=== PATIENT | female | born 1950 | race Caucasian/White ===

== ENCOUNTER → 2017-08-18 | Outpatient (CLI) | payer OTHER, MEDICARE ==
[~2017-08-18] MED LIST: ACET-1256 PO; BCTROWC TOP; CLBCR15 TOP; FAMO20TA11 PO; FRC PO; IBUP-1050 PO; ROBITUSSIN COUGH PO; SPIR25TA PO; SYN50 PO; TRAM-10 PO
--- NOTE | 2017-08-18 15:47 | MAMMOGRAPHY REPORT ---
BILATERAL DIGITAL SCREENING MAMMOGRAM WITH CAD: 08/18/2017 CLINICAL HISTORY: Routine screening. Patient has no complaints. TECHNIQUE: Current study was also evaluated with a Computer Aided Detection (CAD) system. Bilateral CC and MLO views were obtained. COMPARISON: Comparison is made to exams dated: 08/16/2016 mammogram, 08/13/2015 mammogram, 08/12/2014 m ammogram - [facility], 03/12/2010 mammogram, and 03/11/2009 mammogram - [facility]. BREAST COMPOSITION: The tissue of both breasts is almost entirely fatty. FINDINGS: No suspicious masses, calcifications, or areas of architectural distortion are noted in ei ther breast. There has been no significant interval change compared to prior exams. Bilateral benign appearing calcifications are not significantly changed. IMPRESSION: ACR BI-RADS CATEGORY 2: BENIGN There is no mammographic evidence of malignancy. A 1 year screening mammogram is recommended. The pa tient will receive written notification of the results. Approximately 10% of breast cancers are not detected with mammography. A negative mammographic report should not delay biopsy if a clinically suggestive mass is present. Susy Brown M.D. /:08/18/2017 10:23:20 Journeyman Machinist: Jailyn Pacheco, [facility] letter sent: Normal 1/2 BI-RADS Code: ACR BI-RADS Category 2: Benign
== END | disposition home or self-care (01) ==
LOC: C.MAMM 09:07
PROVIDERS: ATTEND Family Medicine
DX: Z12.31 Encounter for screening mammogram for malignant neoplasm of breast (principal)

== ENCOUNTER 2020-09-23 23:14 | Inpatient (IN) ==
[2020-09-24] MEDS ORDERED: SODIUM CHLORIDE 0.9% 500 ML IV ONE (00:14)
--- NOTE | 2020-09-24 00:32 | Emergency Department Note ---
History of Present Illness General Chief complaint: Abdominal Pain Stated complaint: ABDOMINAL CRAMPING Time Seen by Provider: 09/23/20 23:45 Source: patient and family Mode of arrival: EMS Limitations: no limitations History of Present Illness Provider complaint: Abdominal pain Onset (ago): hour(s) Location: abdomen Radiation: non-radiation Severity: moderate Pain Consistency: + intermittent Maximum Pain Intensity: 8 Quality: + sharp Relieved By: + none Exacerbated By: + none Associated symptoms: + denies other symptoms Treatments prior to arrival: none This is a 70-year-old female who presents emergency department complaining of intermittent sharp lower abdominal pain. The son at bedside provides most of the history and also provides extensive history about her past and chronic medical problems. Son states she seemed in her usual state of health earlier today. They did get takeout from a local restaurant which she states is unusual as they do not do that frequently, and shortly after eating she stated she needed to go to the restroom. He states she then called for help when he went back to check on her after he did not hear her come out of the bathroom in a while. He states he went in and found her weak and pale appearing struggling to get up off the commode. He states it appeared she had had diarrhea, no blood or clots were noticed. He states he called his brother to help pick her up and lay her in bed. He states that it appeared as though she may pass out but she did continue to talk to them, and slowly her color improved after lying down. Given that she appeared so weak and pale his brother checked her blood sugar and then they checked her blood pressure with a cuff at home. Her blood pressure was lower than usual and given her parents they called 911. 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 Patient did not have any of her evening medications that she felt nauseated and had so much pain. No treatment of the pain prior to arrival. Patient states she has never had pain similar to this before. Patient denies any radiation of the pain. Denies fevers or chills. No other recent trauma, change in diet, or change in activity. No recent medication changes. No history of IBS or IBD. Pt seen during a time of high acuity and national emergency pandemic while wearing PPE. Home Medications Home Medications Medication Instructions Recorded Confirmed Type [id number] 1 tab PO Q6H PRN tab 09/04/19 09/24/20 History 50 mg-325 mg-40 mg tablet spironolactone 25 mg tablet 25 mg PO DAILY tab 09/04/19 09/24/20 History tramadol 50 mg tablet 50 - 100 mg PO Q6H PRN tab MDD 09/04/19 09/24/20 History 400 MG/DAY levothyroxine [Synthroid] 50 mcg PO QAM 03/17/20 09/24/20 History lidocaine 1 applic TOPICAL DIRECTED PRN 03/17/20 09/24/20 History apixaban 5 mg tablet 5 mg PO BID 04/14/20 09/24/20 History acetaminophen [Tylenol Extra 500 - 1,000 mg PO Q6H PRN 09/24/20 09/24/20 History Strength] cholecalciferol (vitamin D3) 2,000 unit PO DAILY 09/24/20 09/24/20 History clobetasol 1 applic TOPICAL DIRECTED PRN 09/24/20 09/24/20 History famotidine 20 mg PO DAILY PRN 09/24/20 09/24/20 History ibuprofen 200 - 600 mg PO DIRECTED PRN 09/24/20 09/24/20 History lisinopril 10 mg PO DAILY 09/24/20 09/24/20 History mupirocin [Bactroban] 1 applic TOPICAL DIRECTED PRN 09/24/20 09/24/20 History peg 400-propylene glycol [Systane 1 drp OPHTHALMIC (EYE) DIRECTED 09/24/20 09/24/20 History Ultra] PRN triamcinolone acetonide 1 applic TOPICAL DIRECTED PRN 09/24/20 09/24/20 History Allergies Allergy/AdvReac Type Severity Reaction Status Date / Time Iodinated Contrast Media Allergy Severe PASSING OUT Verified 09/24/20 01:19 bacitracin Allergy Intermediate REDNESS, Verified 09/24/20 01:19 RASH, "MAKES IT WORSE" latex Allergy Intermediate SKIN Verified 09/24/20 01:29 IRRITATION, ITCHY mold Allergy Intermediate CONGESTION Verified 09/24/20 01:27 neomycin Allergy Intermediate REDNESS, Verified 09/24/20 01:19 RASH, "MAKES IT WORSE" polymyxin B Allergy Intermediate REDNESS, Verified 09/24/20 01:19 RASH, "MAKES IT WORSE" aspirin Allergy Unknown STAYS AWAY Verified 09/24/20 01:19 FROM SINCE ON BLOOD THINNERS clarithromycin Allergy Unknown Unknown Verified 09/24/20 01:19 codeine Allergy Unknown Unknown Verified 09/24/20 01:19 diphtheria toxoid,fluid Allergy Unknown Unknown Verified 09/24/20 01:19 iron Allergy Unknown PER PT'S Verified 09/24/20 01:29 SON morphine Allergy Unknown Unknown Verified 09/24/20 01:19 prednisone Allergy Unknown Unknown Verified 09/24/20 01:19 SEAFOOD Allergy Severe VOMITING Uncoded 09/24/20 01:19 Past Med/Surg History Medical History Hypertension Hypothyroid Migraine Surgical History History of cataract surgery History of cholecystectomy History of hysterectomy History of tooth extraction S/P knee replacement Family History Son Asthma Diabetes Hypertension Pulmonary embolism Sinusitis Mother Diabetes Pulmonary embolism Father Pulmonary embolism Denies family history of Ovarian cancer Breast cancer Colorectal cancer Uterus cancer Social History Smoking Status: Never smoker Hx Alcohol Use: No Hx Substance Use: No Preferred Language: Welsh Communication Ability: Effective 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 and A total of 10 systems reviewed and were otherwise negative Physical Exam Vital Signs Vital Signs - 24 hr 09/24/20 01:48 09/24/20 04:51 Pulse Rate [Apical] 98 H 101 H Respiratory Rate 18 18 Blood Pressure [Left Arm] 130/88 120/81 Blood Pressure Mean [Left Arm] 102 94 Pulse Oximetry 100 98 Oxygen Delivery Method Room Air Room Air GENERAL: alert, ill appearing, well nourished, mild distress, non-toxic, purple hair EYE EXAM: normal conjunctiva, PERRL and EOM's grossly intact OROPHARYNX: no exudate, no erythema, lips, buccal mucosa, and tongue normal and mucous membranes are moist NECK: supple, no nuchal rigidity, no adenopathy, non-tender LUNGS: Clear to auscultation. Normal chest wall mechanics, no w/r/r HEART: no murmurs, S1 normal and S2 normal ABDOMEN: abdomen soft, tenderness in lower abdomen, normo-active bowel sounds, no masses, no rebound or guarding. BACK: Back is symmetrical on inspection and there is no deformity, no midline tenderness, no CVA tenderness. SKIN: no rashes and no bruising UPPER EXTREMITIES: upper extremities are grossly normal. FROM, nml pulses b/l. LOWER EXTREMITIES: No pitting edema. FROM, nml pulses b/l. NEURO EXAM: Normal sensorium, cranial nerves II-XII grossly intact, normal speech, no gross weakness of arms, no gross weakness of legs. Gross sensation intact. Course Course 0140: Pt just returned from CT and had a large BM on the stretcher. Mostly liquid stool noted, dark red in appearance, bedside guaiac testing heme positive. Pt states pain is improved. 0240: Patient updated on additional CT results. Patient states no further pain at this time. Patient has had 2 subsequent recurrent episodes of bloody diarrhea. 0320: Case discussed with [facility] service. Repeat H&H was drawn and sent and is unchanged, type and screen pending, repeat lactic acid is also pending. Administered Medications Acetaminophen/Butalbital/Caffeine (Butalbital/Acetamin/Caffeine Tab) 1 tab PO Q6H PRN PRN Reason: Headache Stop: 10/24/20 07:37 Last Admin: 09/24/20 12:42 Dose: 1 tab Documented by: [id number] Heparin Sodium (Porcine) (Heparin Sod 5,000 Unit/0.5 Ml Vial) 5,000 units SQ Q12 [facility] Stop: 10/24/20 20:59 Last Admin: 09/24/20 20:03 Dose: 5,000 units Documented by: [id number] Sodium Chloride (Nss 1000ml) 1,000 mls @ 125 mls/hr IV .Q8H [facility]ARY Stop: 10/24/20 01:59 Last Admin: 09/24/20 17:29 Dose: 125 mls/hr Documented by: [id number] Infusion: 09/24/20 17:29 Dose: 125 mls/hr Documented by: [id number] Admin: 09/24/20 11:19 Dose: 125 mls/hr Documented by: [id number] Infusion: 09/24/20 10:34 Dose: 0 mls/hr Documented by: [id number] Admin: 09/24/20 02:20 Dose: 125 mls/hr Documented by: [id number] Pantoprazole Sodium 40 mg/ (Syringe) 10 mls @ 5 mls/min IV BID [facility]ARY Stop: 10/24/20 08:59 Last Admin: 09/24/20 20:00 Dose: 5 mls/min Documented by: [id number] Admin: 09/24/20 09:21 Dose: 5 mls/min Documented by: [id number] Famotidine 20 mg/ Syringe 5 mls @ 2.5 mls/min IV BID CLARY Stop: 10/24/20 08:59 Last Admin: 09/24/20 20:00 Dose: 2.5 mls/min Documented by: [id number] Admin: 09/24/20 09:20 Dose: 2.5 mls/min Documented by: [id number] Piperacillin Sod/Tazobactam (Sod 3.375 gm/ Dextrose) 115 mls @ 28.75 mls/hr IV Q8H [facility]; Protocol Stop: 10/04/20 15:59 Last Admin: 09/24/20 23:49 Dose: 28.8 mls/hr Documented by: [id number] Infusion: 09/24/20 21:37 Dose: 0 mls/hr Documented by: [id number] Admin: 09/24/20 17:30 Dose: 28.8 mls/hr Documented by: [id number] Levothyroxine Sodium (Levothyroxine Sodium 50 Mcg Tablet) 50 mcg PO DAILYBB [facility] Stop: 10/24/20 08:59 Last Admin: 09/24/20 09:20 Dose: 50 mcg Documented by: [id number] Magnesium Oxide (Magnesium Oxide 400 Mg Tab) 400 mg PO BID [facility]ARY Stop: 10/24/20 08:59 Last Admin: 09/24/20 21:11 Dose: 400 mg Documented by: [id number] Admin: 09/24/20 05:38 Dose: 400 mg Documented by: [id number] Discontinued Medications Heparin Sodium/Dextrose (Heparin Iv Low Dose *No* Bolus) 1 ea IV Q15M [facility]; Protocol Stop: 10/24/20 09:43 Last Admin: 09/24/20 16:46 Dose: Not Given Documented by: [id number] Admin: 09/24/20 16:46 Dose: Not Given Documented by: [id number] Admin: 09/24/20 16:46 Dose: Not Given Documented by: [id number] Admin: 09/24/20 16:46 Dose: Not Given Documented by: [id number] Admin: 09/24/20 16:46 Dose: Not Given Documented by: [id number] Admin: 09/24/20 16:45 Dose: Not Given Documented by: [id number] Admin: 09/24/20 16:45 Dose: Not Given Documented by: [id number] Admin: 09/24/20 16:45 Dose: Not Given Documented by: [id number] Admin: 09/24/20 16:44 Dose: Not Given Documented by: [id number] Admin: 09/24/20 16:44 Dose: Not Given Documented by: [id number] Admin: 09/24/20 16:44 Dose: Not Given Documented by: [id number] Admin: 09/24/20 16:44 Dose: Not Given Documented by: [id number] Admin: 09/24/20 16:43 Dose: Not Given Documented by: [id number] Admin: 09/24/20 16:43 Dose: Not Given Documented by: [id number] Admin: 09/24/20 16:43 Dose: Not Given Documented by: [id number] Admin: 09/24/20 16:43 Dose: Not Given Documented by: [id number] Admin: 09/24/20 16:42 Dose: Not Given Documented by: [id number] Admin: 09/24/20 10:37 Dose: Not Given Documented by: [id number] Admin: 09/24/20 10:37 Dose: Not Given Documented by: [id number] Admin: 09/24/20 10:37 Dose: Not Given Documented by: [id number] Admin: 09/24/20 10:36 Dose: Not Given Documented by: [id number] Sodium Chloride (Nss) 500 mls @ 999 mls/hr IV .Q31M ONE Stop: 09/24/20 00:44 Last Infusion: 09/24/20 01:19 Dose: 0 mls/hr Documented by: [id number] Admin: 09/24/20 00:44 Dose: 999 mls/hr Documented by: [id number] Acetaminophen (Ofirmev) 1,000 mg in 100 mls @ 400 mls/hr IV NOW STA Stop: 09/24/20 01:17 Last Infusion: 09/24/20 01:22 Dose: 0 mls/hr Documented by: [id number] Admin: 09/24/20 01:07 Dose: 400 mls/hr Documented by: [id number] Piperacillin Sod/Tazobactam Sod (Zosyn) 4.5 gm in 120 mls @ 240 mls/hr IV NOW ONE Stop: 09/24/20 03:20 Last Infusion: 09/24/20 04:51 Dose: 0 mls/hr Documented by: [id number] Admin: 09/24/20 04:10 Dose: 240 mls/hr Documented by: [id number] Potassium Chloride (K David / Wtr) 10 meq in 100 mls @ 100 mls/hr IV Q1H [facility] Stop: 09/24/20 09:01 Last Infusion: 09/24/20 12:47 Dose: 0 mls/hr Documented by: [id number] Admin: 09/24/20 11:20 Dose: 75 mls/hr Documented by: [id number] Infusion: 09/24/20 10:04 Dose: 0 mls/hr Documented by: [id number] Admin: 09/24/20 08:18 Dose: 75 mls/hr Documented by: [id number] Infusion: 09/24/20 08:16 Dose: 0 mls/hr Documented by: [id number] Admin: 09/24/20 06:53 Dose: 100 mls/hr Documented by: [id number] Infusion: 09/24/20 06:29 Dose: 100 mls/hr Documented by: [id number] Admin: 09/24/20 05:29 Dose: 100 mls/hr Documented by: [id number] Piperacillin Sod/Tazobactam (Sod 3.375 gm/ Dextrose) 115 mls @ 28.75 mls/hr IV Q8H [facility]; Protocol Stop: 09/26/20 09:59 Last Infusion: 09/24/20 14:16 Dose: 0 mls/hr Documented by: [id number] Admin: 09/24/20 09:21 Dose: 28.8 mls/hr Documented by: [id number] Heparin Sodium/Dextrose (Heparin Sodium/Dextrose) 25,000 units in 500 mls @ 0.02 mls/hr IV .Q24H [facility]; Protocol Stop: 10/24/20 09:44 Last Admin: 09/24/20 16:42 Dose: Not Given Documented by: [id number] Magnesium Oxide (Magnesium Oxide 400 Mg Tab) Confirm Administered Dose 400 mg .ROUTE .STK-MED ONE Stop: 09/24/20 05:37 Last Admin: 09/24/20 05:38 Dose: Not Given Documented by: [id number] Miscellaneous Information (Piperacill/Tazobac Consult Active) 1 ea N/A UD PRN PRN Reason: Consult Stop: 10/24/20 02:50 Last Admin: 09/24/20 04:10 Dose: 1 ea Documented by: [id number] Medical Decision Making Differential Diagnosis Differential diagnoses includes but is not limited to gastritis, peptic ulcer disease, GERD, gallbladder disease, pancreatitis, small bowel obstruction, acute coronary syndrome, pericarditis, ischemic bowel, irritable bowel disease, irritable bowel syndrome, appendicitis, diverticulitis, malignancy, hernia, urinary tract infection, torsion, [/ectopic (if female)], perforation, trauma, infectious. Medical Records Attestation: I reviewed the patient's medical records. Home Medications Current Medication List: was personally reviewed by me Laboratory Data Attestation: I reviewed the patient's lab results. Result diagrams: 09/24/20 02:09 09/24/20 00:36 Lab Results 09/24/20 09/24/20 09/24/20 Range/Units 00:36 00:36 00:36 WBC 22.97 H (4.8-10.8) K/uL RBC 4.50 (4.2-5.4) M/uL Hgb 14.9 (12.0-16.0) g/dL Hct 44.3 (37-47) % MCV 98.4 (80-100) fL MCH 33.1 (25-34) pg MCHC 33.6 (32-36) g/dL RDW Std Deviation 49.2 H (36.4-46.3) fL RDW Coeff of Radha 13.7 (11.5-14.5) % Plt Count 233 (130-400) K/uL MPV 10.0 (7.4-10.4) fL Immature Gran % (Auto) 0.3 % Neut % (Auto) 85.8 % Lymph % (Auto) 7.1 % [place] % (Auto) 6.4 % Eos % (Auto) 0.3 % Baso % (Auto) 0.1 % Neut # (Auto) 19.72 H (1.4-6.5) K/uL Lymph # (Auto) 1.62 (1.2-3.4) K/uL [place] # (Auto) 1.47 H (0.11-0.59) K/uL Eos # (Auto) 0.07 (0-0.5) K/uL Baso # (Auto) 0.02 (0-0.2) K/uL Immature Gran # (Auto) 0.07 H (0.00-0.02) K/uL Sodium 135 L (136-145) mmol/L Potassium 3.4 L (3.5-5.1) mmol/L Chloride 103 (98-107) mmol/L Carbon Dioxide 24 (21-32) mmol/L Anion Gap 8.0 (3-11) BUN 17 (7-18) mg/dl Creatinine 1.60 H (0.6-1.2) mg/dl Est Cr Clr Drug Dosing 37.7 ml/min Est GFR ( Amer) 36.9 Est GFR (Non-Af Amer) 31.9 BUN/Creatinine Ratio 10.4 (10-20) Glucose 129 H (70-99) mg/dl Lactate 2.9 H* (0.4-2.0) mmol/L Calcium 10.7 H (8.5-10.1) mg/dl Total Bilirubin 0.4 (0.2-1) mg/dl AST 23 (15-37) U/L ALT 25 (12-78) U/L Alkaline Phosphatase 368 H (45-117) U/L Total Protein 8.2 (6.4-8.2) gm/dl Albumin 4.1 (3.4-5.0) gm/dl Globulin 4.1 H (2.5-4.0) gm/dl Albumin/Globulin Ratio 1.0 (0.9-2) Lipase 203 (73-393) U/L Procalcitonin (0-0.5) ng/ml Stl C. diff Tox B Gene (Neg) Blood Type Antibody Screen 09/24/20 09/24/20 09/24/20 Range/Units 00:37 01:55 02:09 WBC (4.8-10.8) K/uL RBC (4.2-5.4) M/uL Hgb (12.0-16.0) g/dL Hct (37-47) % MCV (80-100) fL MCH (25-34) pg MCHC (32-36) g/dL RDW Std Deviation (36.4-46.3) fL RDW Coeff of Radha (11.5-14.5) % Plt Count (130-400) K/uL MPV (7.4-10.4) fL Immature Gran % (Auto) % Neut % (Auto) % Lymph % (Auto) % [place] % (Auto) % Eos % (Auto) % Baso % (Auto) % Neut # (Auto) (1.4-6.5) K/uL Lymph # (Auto) (1.2-3.4) K/uL [place] # (Auto) (0.11-0.59) K/uL Eos # (Auto) (0-0.5) K/uL Baso # (Auto) (0-0.2) K/uL Immature Gran # (Auto) (0.00-0.02) K/uL Sodium (136-145) mmol/L Potassium (3.5-5.1) mmol/L Chloride (98-107) mmol/L Carbon Dioxide (21-32) mmol/L Anion Gap (3-11) BUN (7-18) mg/dl Creatinine (0.6-1.2) mg/dl Est Cr Clr Drug Dosing ml/min Est GFR ( Amer) Est GFR (Non-Af Amer) BUN/Creatinine Ratio (10-20) Glucose (70-99) mg/dl Lactate (0.4-2.0) mmol/L Calcium (8.5-10.1) mg/dl Total Bilirubin (0.2-1) mg/dl AST (15-37) U/L ALT (12-78) U/L Alkaline Phosphatase (45-117) U/L Total Protein (6.4-8.2) gm/dl Albumin (3.4-5.0) gm/dl Globulin (2.5-4.0) gm/dl Albumin/Globulin Ratio (0.9-2) Lipase (73-393) U/L Procalcitonin 0.08 (0-0.5) ng/ml Stl C. diff Tox B Gene Negative Cdiff Gene (Neg) Blood Type A Positive Antibody Screen NEGATIVE 09/24/20 09/24/20 Range/Units 02:09 03:30 WBC (4.8-10.8) K/uL RBC (4.2-5.4) M/uL Hgb 14.8 (12.0-16.0) g/dL Hct 44.4 (37-47) % MCV (80-100) fL MCH (25-34) pg MCHC (32-36) g/dL RDW Std Deviation (36.4-46.3) fL RDW Coeff of Radha (11.5-14.5) % Plt Count (130-400) K/uL MPV (7.4-10.4) fL Immature Gran % (Auto) % Neut % (Auto) % Lymph % (Auto) % [place] % (Auto) % Eos % (Auto) % Baso % (Auto) % Neut # (Auto) (1.4-6.5) K/uL Lymph # (Auto) (1.2-3.4) K/uL [place] # (Auto) (0.11-0.59) K/uL Eos # (Auto) (0-0.5) K/uL Baso # (Auto) (0-0.2) K/uL Immature Gran # (Auto) (0.00-0.02) K/uL Sodium (136-145) mmol/L Potassium (3.5-5.1) mmol/L Chloride (98-107) mmol/L Carbon Dioxide (21-32) mmol/L Anion Gap (3-11) BUN (7-18) mg/dl Creatinine (0.6-1.2) mg/dl Est Cr Clr Drug Dosing ml/min Est GFR ( Amer) Est GFR (Non-Af Amer) BUN/Creatinine Ratio (10-20) Glucose (70-99) mg/dl Lactate 4.2 H* (0.4-2.0) mmol/L Calcium (8.5-10.1) mg/dl Total Bilirubin (0.2-1) mg/dl AST (15-37) U/L ALT (12-78) U/L Alkaline Phosphatase (45-117) U/L Total Protein (6.4-8.2) gm/dl Albumin (3.4-5.0) gm/dl Globulin (2.5-4.0) gm/dl Albumin/Globulin Ratio (0.9-2) Lipase (73-393) U/L Procalcitonin (0-0.5) ng/ml Stl C. diff Tox B Gene (Neg) Blood Type Antibody Screen Imaging Data Radiologist's Impression: CT abdomen and pelvis without contrast: Images from the previous study of April 09, 2020 are not available for direct at this time. Liver, spleen and pancreas appear normal. Gallbladder is surgically absent. Stomach is mildly distended. There is a moderate gastric sliding hiatal hernia. Small bowel loops appear normal. Large bowel is diffusely distended and filled with fluid. There are dynamic fluid levels. There is a segment of thickened and inflamed colon in the sigmoid colon and there is a small amount of retained fecal material in the rectum. The adrenals kidneys ureters and bladder appear normal. Uterus is not visualized. There are mild atherosclerotic changes in the abdominal aorta. There is no free peritoneal air. Impression: Diffuse colonic distention and fluid with some thickening of the sigmoid colon suggesting diffuse colitis and partial obstruction. Ischemic colitis cannot be excluded although, there is no colonic wall pneumatosis or portal venous gas. Radiologist: Cory José MD ECG Data Attestation: I personally reviewed and interpreted this ECG as follows: Indication: + abdominal pain Rate (beats per minute): 93 Rhythm: + normal sinus ECG Intervals/blocks: + First degree AV block, + Normal QRS and + Normal QT ECG [place]: + Normal ECG ST segments: + Nonspecific ST abnormalities Comparison ECG Date: from (03/17/2020) Change: no significant change Blood Pressure Blood Pressure Findings: Normal blood pressure MDM Narrative This is an ill-appearing 70-year-old brought in by EMS with her son at bedside who provides most of the history. Patient with intermittent abdominal cramping after eating takeout restaurant food earlier in this evening. While story suggestive initially of possible foodborne illness, given patient's past medical history and ongoing problems, labs are drawn and sent and patient sent for CT imaging. Patient with a soft initial blood pressure that did respond to IV flu ids, and given diarrhea and ongoing GI symptoms, likely secondary to volume losses as well as vasovagal influence. Patient was afebrile here. Patient found to have a significant leukocytosis and lactic acid of 2.9. IV Zosyn was added as a precaution and additional blood cultures were added as well as a procalcitonin. Upon returning from CAT scan, patient had a large bloody episode of diarrhea. A repeat H&H and a type and screen were added at that time. CT revealed colitis, this was discussed with patient at bedside. Following her episodes of diarrhea here, patient stated the pain has since resolved. Due to concern for the colitis noted, these 3 episodes of bloody diarrhea here in the setting of patient being anticoagulated, as well as the significant leukocytosis, the case was discussed with the hospitalist for additional evaluation. The repeat lactic acid was pending at the time of this discussion. Patient remained hemodynamically stable while in the emergency room, IV fluids were continued, and patient continued to report feeling improved. In light of improvement, I feel ischemic colitis is less likely. Patient with no other history of inflammatory bowel disease. Patient and son were made aware of all results and were in agreement with plan. Patient had not taken her evening anticoagulation, given her GI bleed, we will hold off on this at this time. An order was placed for continuous cardiac monitoring. The monitor shows a rate of 100_ with _sinus tachycardia rhythm. Impression & Plan Abdominal pain, Acute GI bleeding, Colitis, JULIANNE (acute kidney injury), Leukocytosis, Acidosis, lactic Discharge Plan Visit Data Chief Complaint: Abdominal Pain Stated Complaint: ABDOMINAL CRAMPING ED Provider: Cynthia Finney Discharge Problem: Abdominal pain, Acute GI bleeding, Colitis, JULIANNE (acute kidney injury), Leukocytosis, Acidosis, lactic Patient Disposition: Admitted As Inpatient Discharge Instructions Interventions: ED Discharge Assessment Last Done: 09/24/20 16:00 Discharge Problem: Abdominal pain Qualifiers: Abdominal location: lower abdomen, unspecified Qualified Code(s): R10.30 - Lower abdominal pain, unspecified Leukocytosis Qualifiers: Leukocytosis type: unspecified Qualified Code(s): D72.829 - Elevated white blood cell count, unspecified
[2020-09-24 00:46] LABS: Basophils # (auto) 0.02 K/uL (0-0.2); Basophils % (auto) 0.1 %; Eosinophils # (auto) 0.07 K/uL (0-0.5); Eosinophils % (auto) 0.3 %; Hematocrit (blood only) 44.3 % (37-47); Hemoglobin 14.9 g/dL (12.0-16.0); Immature Granulocytes # (auto) 0.07 K/uL (0.00-0.02); Immature Granulocytes % (auto) 0.3 %; Lymphocytes # (auto) 1.62 K/uL (1.2-3.4); Lymphocytes % (auto) 7.1 %; Mean Corpuscular Hemoglobin 33.1 pg (25-34); Mean Corpuscular Hgb Conc 33.6 g/dL (32-36); Mean Corpuscular Volume 98.4 fL (80-100); Monocytes # (auto) 1.47 K/uL (0.11-0.59); Monocytes % (auto) 6.4 %; Neutrophils # (auto) 19.72 K/uL (1.4-6.5); Neutrophils % (auto) 85.8 %; Platelet Count 233 K/uL (130-400); RDW Coefficient of Variation 13.7 % (11.5-14.5); RDW Standard Deviation 49.2 fL (36.4-46.3); White Blood Count 22.97 K/uL (4.8-10.8)
[2020-09-24 01:03] LABS: Albumin Level 4.1 gm/dl (3.4-5.0); BUN Creatinine Ratio 10.4 (10-20); Calcium 10.7 mg/dl (8.5-10.1); Creatinine Clr Calc Pharmacy 37.7 ml/min; Est GFR (African American) 36.9; Est GFR (Non-African American) 31.9; Potassium 3.4 mmol/L (3.5-5.1)
[2020-09-24] MEDS ORDERED: ACETAMINOPHEN 1,000 MG/100 ML VIAL IV STA (01:03)
[2020-09-24 01:06] LABS: Bilirubin,Total 0.4 mg/dl (0.2-1); Globulin 4.1 gm/dl (2.5-4.0); Total Protein 8.2 gm/dl (6.4-8.2)
[2020-09-24] MEDS: SODIUM CHLORIDE 0.9% 1000ML 1,000 ML IV SCH ×3 (02:20→17:29)
[2020-09-24 02:21] LABS: Hematocrit (blood only) 44.4 % (37-47); Hemoglobin 14.8 g/dL (12.0-16.0)
[2020-09-24] MEDS ORDERED: PIPERACILLIN/TAZOBACTAM 4.5 GM/120 ML BAG IV ONE (02:51)
[2020-09-24] MEDS ORDERED: PIPERACILL/TAZOBAC CONSULT ACTIVE PRN ×3 (02:51→15:45)
--- NOTE | 2020-09-24 04:16 | History & Physical Report ---
Date of Service September 24, 2020 Assessment & Plan (1) Abdominal pain: Sophia is a 70yo F with a hx of DVT and HTN who presents with an episode of GI bleeding and diarrhea. Abdominal pain and diarrhea with blood, diffuse colitis. Patient with abdominal pain and subsequent constipation followed by bloody diarrhea. Abdominal pain gradually improving on exam, minimally worsened with palpation CT abdomen: Diffuse colonic distention with fluid and some thickening of sigmoid colon, diffuse colitis and partial obstruction. No wall pneumatosis or portal venous gas. C. difficile negative Leukocytosis to 22.97, uptrending lactate following fluids Patient with personal and family history of coagulopathy, large blood clots in left leg extending into the abdomen several years ago. Differential suspicious for mesenteric ischemia versus foodborne colitis, however diffuse colitis seems disproportionate to short onset foodborne illness Stool cultures pending, blood cultures pending Patient unable to have contrast due to fear allergy per patient Mesenteric Dopplers pending GI consulted Concern for GI bleed with ischemia on the differential she is both at risk for bleeding, but at risk for complications from thrombosis. Last took her Eliquis last evening. At 9:00 will convert to heparin GTT pending further differential work-up to better manage risks of clot versus bleeding with shorter half-life. n.P.o. with sips and chips Status post 1000 cc x1 and 500cc x1 boluses Continue to trend lactate Arrhythmia Patient with EKG/rhythm strip showing P waves nearly superimposed on T waves and occasional PVCs. Asymptomatic Follow on telemetry Optimize potassium, magnesium History of left venous thrombosis - extensive down entire leg and into abdomen per patient Patient reports that she has been told she will have residual clot in her abdomen and upper thigh for life, and that Eliquis has shrunk but not eliminate the clot Her son also has a coagulopathy, and developed blood clots rapidly after stopping warfarin therapy Apixaban and heparin management as above No acute change in left leg, follow clinically JULIANNE Creatinine 1.6, baseline less than 1 Hold nephrotoxins/lisinopril/spironolactone Fluids as below BMP daily DVT prophylaxis: As above Diet: N.p.o. sips and chips Disposition: Medical/surgical telemetry CODE STATUS: Full code -----ADDENDUM FROM 09/24/2020 17:00----- Patient evaluated multiple times throughout the day with improving physical exam. Noted lessening in her abdominal discomfort (to the point where no discomfort unless coughing or sneezing at rest). Still having some diffuse tenderness to abdominal palpation, worse in the lower quadrants. Mesenteric Doppler with <50% stenosis of the mid superior mesenteric artery and no evidence of stenosis within the celiac axis -- less concern for Mesenteric Ischemia Plan: -Ischemic vs Infectious colitis -Stool studies pending -Will continue with supportive management, clear liquid diet -Empiric abx with Zosyn -Appreciate GI input (2) Acute GI bleeding: (3) Colitis: (4) JULIANNE (acute kidney injury): (5) Leukocytosis: (6) Acidosis, lactic: History of Present Illness Chief Complaint: Diarrhea, Abdominal Pain Primary Care Provider: Jaki Escoto DO Sophia is a 70yo F with a hx of DVT and HTN who presents with an episode of GI bleeding and diarrhea. She denies has not had symptoms like this before. She sometimes struggles with bowel movements Today she had to go to the bathroom and had a sense of unusual urgency. She had had [employer] chicken tenders about 45 minutes prior to onset of symptoms. She had' an insane urgency' but couldn't pass a bowel movement. She has chronic post herpatic neuralgia and she tends ot hold her breath with BMs which can cause her to pass out. She had a small liquid/clear bowel movement. She started to feel faint which made her nervous and she called for one of her sons to help her. They helped her to the bed. She was 'clammy, covered in sweat, and weak' per her sons report. She was responding and coherant, but seemed very weak. Her son checked her blood pressure which was 117/80 which on recheck it a low fo 101/60s. His brother is a diabetic so they checked her blood sugar which was 141. Her temperature while cold and clammy was 67 by forehead thermometer which made her son very nervous. She had a very large bowel movement after getting pain medicine which made her feel much better, but which had some bright red blood. Denies dark red blood. She is on blood thinners because of a blood clot She was very ill last winter with viral illnesses and had antibiotics after which caused her to develop redness and swelling in her legs which also developed blood clots requiring her to have blood thinners. 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 She is not sure how much she worries phsycologically but she gets very nervous around having bowel movements since. She reports she has lichen sclerosis on clobetasol and reports she is immune compromised because of this which makes her nervous to come out in public. Takes tylenol, does not use ibuprofen/alieve. Uses fioricet for migranes, using every day for 1 day. She gets a sour stomach from the medicine intermittently off and on for a few days, Last colonoscopy was several years ago, was com pletely normal. Had an endoscopy which showed 'some red spots' but which did not show ulcer. Takes famotidine for 'bad spells' on average twice per week. Allergies: Reports cannot take iron due to lower blood pressure, allergic to contrast, and allergic to shellfish. she reports she CAN have PCN now. Medhx: Reviewed Shx: reviewed Medications: reviewed Social: Lives with her two sons. Independently ambulatory. No sick contacts, hasn't been out of the house at all and quarantining carefully. No tobacco, no alcohol, no recreational drug use. Code Status: Full Code Allergies Allergy/AdvReac Type Severity Reaction Status Date / Time Iodinated Contrast Media Allergy Severe PASSING OUT Verified 09/24/20 01:19 bacitracin Allergy Intermediate REDNESS, Verified 09/24/20 01:19 RASH, "MAKES IT WORSE" latex Allergy Intermediate SKIN Verified 09/24/20 01:29 IRRITATION, ITCHY mold Allergy Intermediate CONGESTION Verified 09/24/20 01:27 neomycin Allergy Intermediate REDNESS, Verified 09/24/20 01:19 RASH, "MAKES IT WORSE" polymyxin B Allergy Intermediate REDNESS, Verified 09/24/20 01:19 RASH, "MAKES IT WORSE" aspirin Allergy Unknown STAYS AWAY Verified 09/24/20 01:19 FROM SINCE ON BLOOD THINNERS clarithromycin Allergy Unknown Unknown Verified 09/24/20 01:19 codeine Allergy Unknown Unknown Verified 09/24/20 01:19 diphtheria toxoid,fluid Allergy Unknown Unknown Verified 09/24/20 01:19 iron Allergy Unknown PER PT'S Verified 09/24/20 01:29 SON morphine Allergy Unknown Unknown Verified 09/24/20 01:19 prednisone Allergy Unknown Unknown Verified 09/24/20 01:19 Fish Containing Products Allergy Verified 09/25/20 13:16 fish derived Allergy Verified 09/25/20 13:17 fish oil Allergy Verified 09/25/20 13:17 shellfish derived Allergy Verified 09/25/20 15:47 SEAFOOD Allergy Severe VOMITING Uncoded 09/24/20 01:19 Home Medications Home Medications Medication Instructions Recorded Confirmed Type [id number] 1 tab PO Q6H PRN tab 09/04/19 09/24/20 History 50 mg-325 mg-40 mg tablet spironolactone 25 mg tablet 25 mg PO DAILY tab 09/04/19 09/24/20 History tramadol 50 mg tablet 50 - 100 mg PO Q6H PRN tab MDD 09/04/19 09/24/20 History 400 MG/DAY levothyroxine [Synthroid] 50 mcg PO QAM 03/17/20 09/24/20 History lidocaine 1 applic TOPICAL DIRECTED PRN 03/17/20 09/24/20 History apixaban 5 mg tablet 5 mg PO BID 04/14/20 09/24/20 History acetaminophen [Tylenol Extra 500 - 1,000 mg PO Q6H PRN 09/24/20 09/24/20 History Strength] cholecalciferol (vitamin D3) 2,000 unit PO DAILY 09/24/20 09/24/20 History clobetasol 1 applic TOPICAL DIRECTED PRN 09/24/20 09/24/20 History famotidine 20 mg PO DAILY PRN 09/24/20 09/24/20 History ibuprofen 200 - 600 mg PO DIRECTED PRN 09/24/20 09/24/20 History lisinopril 10 mg PO DAILY 09/24/20 09/24/20 History mupirocin [Bactroban] 1 applic TOPICAL DIRECTED PRN 09/24/20 09/24/20 History peg 400-propylene glycol [Systane 1 drp OPHTHALMIC (EYE) DIRECTED 09/24/20 09/24/20 History Ultra] PRN triamcinolone acetonide 1 applic TOPICAL DIRECTED PRN 09/24/20 09/24/20 History Past Med/Surg History Medical History (Updated 09/24/20 @ 04:10 by Cynthia Finney DO) Hypertension Hypothyroid Migraine Surgical History (Updated 09/25/20 @ 15:57 by Deann Jin) History of cataract surgery History of cholecystectomy History of hysterectomy History of oophorectomy, unilateral History of tooth extraction S/P knee replacement Status post tubal ligation Family History Son Asthma Diabetes Hypertension Pulmonary embolism Sinusitis Mother Diabetes Pulmonary embolism Father Pulmonary embolism Denies family history of Ovarian cancer Breast cancer Colorectal cancer Uterus cancer Social History (Updated 09/25/20 @ 15:55 by Deann Jin) Smoking Status: Never smoker Do You Dip or Chew Tobacco: No; Hx Alcohol Use: No Hx Substance Use: No Preferred Language: [place] Communication Ability: Effective Nursing Home Assistant Required: No Beliefs That Will Affect Care: None marital status: Current Living Situation: Family How many Children do You have: 2 Feels Safe at Home: Yes Safety Concerns: Feels Safe At This Time Assistive Devices: Walker Review of Systems Review of Systems: Constitutional: Denies fever, chills, malaise, weight change Eyes: Denies double vision, vision change, eye pain ENT: Denies ear pain, sore throat, sinus pain Cardiovascular: Denies Chest pain, chest pressure, palpitations, extremity swelling Respiratory: Denies shortness of breath, cough, sputum production, difficulty breathing Gastrointestinal: Denies abdominal pain, nausea, vomiting, constipation, diarrh ea Genitourinary: Denies pain with urination, urinary urgency, urinary frequency Musculoskeletal: Denies weakness, muscle aches/pain, joint aches/pain Integumentary:Denies rash, lesions, bruising Neurological: Denies headache, numbness, tingling, focal weakness Physical Exam Physical Exam: General: A&Ox3. NAD. Cooperative. HEENT: Atraumatic, normocephalic. Pupils equal and reactive to light and accommodation. Visual acuity grossly intact. Hearing grossly intact. Pulm: CTAB A&P. -wheezes, -rales, -rhonchi. Symmetrical chest rise. No increase work of breathing. No respiratory distress. Cardiac: RRR, -mrg. Radial pulses intact and symmetrical. Abdominal: Diffusely tender in lower abdomen minimally worsened with palpation. No rebound tenderness. Bowel sounds intact. Extremities: 5/5 mixer and scaler strength, ankle plantarflexion/dorsiflexion bilaterally. Sensation intact extremities bilaterally. Left extremity slightly larger than right extremity, baseline per patient Incision intact in fingers and toes bilaterally. Results & Data Results & Data ([facility]) Vital Signs (Past 12 Hours) Vital Signs Temp Pulse Pulse Resp BP BP Pulse Ox 09/24/20 01:48 98 H 18 130/88 100 09/24/20 00:30 98 H 18 112/62 100 09/24/20 00:00 95 H 18 96/57 L 100 09/23/20 23:25 36.5 C 95 H 18 104/76 100 Supervising Physician Co-Signing Physician Notes Attending addendum: I have physically seen this patient, have supervised the medical residents activities, and agree with the H&P unless as otherwise noted. Assessment and Plan: Diffuse colitis/abdominal pain/bloody diarrhea- Follow stool cultures and blood cultures. Differential includes food poisoning, viral, bacterial and ischemic. Order mesenteric Dopplers to assess for ischemia Anticoagulation management as noted. Left lower extremity DVT history/coagulopathy- Off apixaban, and on conservative heparin IV until because of above determined. Acute kidney injury- Creatinine 1.6 upon admission, with baseline less than 1- Hold lisinopril and spironolactone. IV fluids as noted. Repeat laboratories in a.m. Arrhythmia- Noted on monitor in ED. P waves periodically landing on previous T wave. No tachycardia noted. May be an MAT picture Follow on telemetry. Order echocardiogram Remaining orders and notations as noted Resident Activity Tracking Resident Involvement: Resident Care Provided Care Provided: Adult Hospital Medicine (1) Leukocytosis Leukocytosis type: unspecified Qualified Code(s): D72.829 - Elevated white blood cell count, unspecified (2) Abdominal pain Abdominal location: lower abdomen, unspecified Qualified Code(s): R10.30 - Lower abdominal pain, unspecified
[2020-09-24] MEDS: POTASSIUM CHLORIDE / WTR 10 MEQ/100 ML PLCT IV SCH ×4 (05:29→11:20)
[2020-09-24] MEDS ORDERED: MAGNESIUM OXIDE 400 MG TAB ONE (05:36)
[2020-09-24] MEDS: MAGNESIUM OXIDE 400 MG TAB PO SCH ×2 (05:38→21:11)
[2020-09-24] MEDS ORDERED: Heparin IV Low Dose *NO* Bolus IV SCH (07:15)
[2020-09-24] MEDS ORDERED: HEPARIN SODIUM/DEXTROSE 25,000 UNITS/500 ML BAG IV SCH ×3 (07:38→09:45)
[2020-09-24] MEDS ORDERED: TRIAMCINOLONE ACET 0.1% OINT 15 GM TUBE TOP PRN (07:38)
[2020-09-24] MEDS ORDERED: LIDOCAINE HCL 5% OINT 30 GM TUBE TOP PRN (07:38)
[2020-09-24] MEDS ORDERED: Heparin IV Standard *NO* Bolus IV ONE (07:38)
[2020-09-24] MEDS ORDERED: traMADol HCL 50 MG TABLET PO PRN (07:38)
[2020-09-24] MEDS ORDERED: ACETAMINOPHEN 325 MG TAB PO PRN (07:38)
--- NOTE | 2020-09-24 08:34 | CT Scan Report ---
CT SCAN OF THE ABDOMEN AND PELVIS WITHOUT IV CONTRAST CLINICAL HISTORY: Generalized abdominal pain. Diarrhea. Hematochezia. COMPARISON STUDY: Abdominal CT dated 04/09/2020. TECHNIQUE: CT scan of the abdomen and pelvis is performed from the lung bases to the proximal femora. Images are reviewed in the axial, sagittal, and coronal planes. IV contrast was not administered for this examination. Note that the examination is suboptimal without IV contrast. A dose lowering techn ique was utilized adhering to the principles of ALARA. CT DOSE: 1027.00 mGy.cm FINDINGS: Lung bases: The heart is normal in size and without pericardial effusion. There are coronary artery c alcifications. The lung bases are clear noting bibasilar scarring/atelectasis. There is a moderate hi atal hernia. Liver: The unenhanced liver is normal in size, contour, and attenuation. Focal fatty infiltration is seen adjacent to falciform ligament. There is no intrahepatic biliary ductal dilatation. Gallbladder: Surgically absent noting clips in the gallbladder fossa. Spleen: Normal in size and attenuation. Pancreas: The unenhanced pancreas is atrophic and grossly unremarkable. Adrenal glands: Unremarkable. Kidneys: The unenhanced kidneys demonstrate cortical atrophy and are without hydronephrosis. There ar e no renal calculi identified. There is no evidence of contour deforming renal mass lesion. Abdominal vasculature: The abdominal aorta is normal in course and caliber noting mild to moderate at herosclerotic calcification. Bowel: There is rectosigmoid fecal retention. The colon is mildly distended and filled with liquid st ool. The colonic wall is mildly thickened there is pericolonic inflammation, greatest involving the l eft colon. Findings are consistent with a nonspecific colitis. The small bowel loops are normal in ca liber with no evidence of obstruction. The appendix is well-visualized and normal. Peritoneum: There is no intraperitoneal free air or abdominal ascites. Lymphadenopathy: None. Pelvic viscera: The bladder is decompressed and grossly unremarkable. The uterus is surgically absent . No adnexal lesion is seen. Trace free fluid is seen in the cul-de-sac. Skeletal structures: The skeletal structures are osteopenic. There is a hemitransitional left lumbosa cral segment. Mild lumbosacral spondylosis is observed. No lytic or blastic lesions are seen. IMPRESSION: 1. Findings are consistent with a diarrheal illness/nonspecific colitis. This is likely on an infecti ous or inflammatory basis and clinical correlation will be required. 2. A small volume of free fluid in the pelvis is likely on a reactive basis. 3. Hiatal hernia. 4. Additional findings as above. ACT 112: Negative or not required by law. Electronically signed by: Arsenio Sena M.D. 09/24/2020 8:33 AM
[2020-09-24] MEDS: LEVOTHYROXINE SODIUM 50 MCG TABLET PO SCH (09:20)
[2020-09-24] MEDS: FAMOTIDINE 20 MG in SYRINGE 3 ML IV SCH ×2 (09:20→20:00)
[2020-09-24] MEDS: PANTOprazole 40 MG in SYRINGE 0 ML IV SCH ×2 (09:21→20:00)
[2020-09-24] MEDS ORDERED: PIPERACILLIN/TAZOBACTAM 3.375 GM in DEXTROSE 5% 100 ML IV SCH (10:00)
[2020-09-24] MEDS: Heparin IV Low Dose *NO* Bolus IV SCH ×7 (10:36→16:46)
--- NOTE | 2020-09-24 10:48 | Ultrasound Report ---
US duplex mesenteric CLINICAL HISTORY: diffuse colitis, post prandial, elevated lactate COMPARISON STUDY: CT of the abdomen and pelvis September 24, 2020. TECHNIQUE: Grayscale, color and duplex Doppler sonography of the abdominal aorta and major branch ves sels was performed. FINDINGS: Peak systolic velocity within the abdominal aorta was 96 cm/s. Peak systolic velocity withi n the celiac axis was 108 cm/s. Peak systolic velocity within the superior mesenteric artery with wit hin the mid aspect of this vessel, measuring 212 cm/s. IMPRESSION: 1. Peak systolic velocity of 212 cm/s within the mid superior mesenteric artery which suggests less t yanez 50% stenosis. 2. No evidence for a stenosis within the celiac axis by sonography. ACT 112: Negative or not required by law. Electronically signed by: Abhi Young M.D. 09/24/2020 10:46 AM
[2020-09-24] MEDS: BUTALBITAL/ACETAMIN/CAFFEINE TAB PO PRN (12:42)
--- NOTE | 2020-09-24 13:05 | Gastrointestinal Consultation ---
Date of Consultation September 24, 2020 Assessment & Plan (1) Acute GI bleeding: (2) Colitis: (3) Abdominal pain: Patient with WBC 22.[address] abdomen pelvis demonstrating mildly distended colon and filled with liquid stool. The colonic wall is mildly thickened there is pericolonic inflammation, greatest involving the left colon. Findings are consistent with a nonspecific colitis. She is currently on a clear liquid diet with IV fluids. She had negative C. difficile testing. Mesenteric ultrasound demonstrated less than 50% stenosis in the mid superior mesenteric artery and no evidence for stenosis of the celiac. Patient is on IV heparin. Recommend continuation of current plan of care. Colonoscopy is not indicated at this time. Please refer to supervising physician addendum for further recommendations. Supervising Physician Co-Signing Physician Notes I have seen and examined the patient. I agree with note above by BRIGID Yancey except as noted below. HPI Pt presents with abd pain, bleeding, diarrhea and CT with left colon thickening. WBC and lactate elevated. PE Abdomen pos bs, soft, no guarding nor rebound A/P diarrhea rectal bleeding abnl colon on CT Ischmia vs infectious most likely. Await stool studies. Abx for now. Supportive care. Would avoid instrumenation of colon at present secondary to increased risk of perforation. History of Present Illness Attending Physician: Jaime Gomez MD History of Present Illness The patient is a pleasant 70-year-old female with past medical history to include hypertension, DVT on eliquis, hypothyroidism, migraine who presented to the emergency department with complaints of abdominal pain. While in the e mergency department liquid stool dark red in appearance with positive guaiac heme testing. CT abdomen and pelvis without IV contrast was obtained 09/24/2020 which demonstrated rectosigmoid fecal retention. The colon is mildly distended and filled with liquid stool. The colonic wall is mildly thickened there is pericolonic inflammation, greatest involving the left colon. Findings are consistent with a nonspecific colitis. The small bowel loops are normal in caliber with no evidence of obstruction. A small volume of free fluid in the pelvis is likely on a reactive basis. Hiatal hernia. Patient was subsequently admitted for management of abdominal pain and diarrhea with blood, diffuse colitis. 09/24/2020: Mesenteric ultrasound was obtained which demonstrated Peak systolic velocity of 212 cm/s within the mid superior mesenteric artery which suggests less than 50% stenosis. No evidence for a stenosis within the celiac axis by sonography. On exam/interview today, the patient continues to experience abdominal discomfort and diarrhea stools. Her son, Gurpreet, is at bedside with her answers primarily as historian at patient's request due to her comfort level. Reports that she had dinner from [employer] last night consisting of chicken strips and a salad. Began experiencing abdominal cramping around 6 or 7 PM. Abdominal pain worsened with fecal urgency. Reports that she had a small amount of clear liquid stool. Her son had to look for her in the bathroom and she was unable to get off the toilet. Reports she was diaphoretic and weak and limp like a noodle. Her sons helped her into her bedroom. Checked her blood pressure which was reportedly low. Blood sugar at that time 141. Reported increased bilateral lower abdominal pressure and distention. Upon arrival to the emergency department had a large liquid stool with bright red blood. Patient reports she has had approximately 10-16 bowel movements at the time of my evaluation this morning. She reports she had emesis x1 at home. Denies further nausea or vomiting. She reports now she has persistent bilateral lower abdominal pain that does relieve with bowel movements. Denies any nausea or vomiting. Reports previous other abdominal surgeries including gallbladder and hysterectomy. She also has history of a hiatal hernia. Reports previous colonoscopy and EGD by Dr. Anton. Also reports prior EGD in [facility]. Records not available for review. She is . She lives with her 2 adult sons. Denies use of alcohol, drugs, cigarettes. She is retired. 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 Allergies Allergy/AdvReac Type Severity Reaction Status Date / Time Iodinated Contrast Media Allergy Severe PASSING OUT Verified 09/24/20 01:19 bacitracin Allergy Intermediate REDNESS, Verified 09/24/20 01:19 RASH, "MAKES IT WORSE" latex Allergy Intermediate SKIN Verified 09/24/20 01:29 IRRITATION, ITCHY mold Allergy Intermediate CONGESTION Verified 09/24/20 01:27 neomycin Allergy Intermediate REDNESS, Verified 09/24/20 01:19 RASH, "MAKES IT WORSE" polymyxin B Allergy Intermediate REDNESS, Verified 09/24/20 01:19 RASH, "MAKES IT WORSE" aspirin Allergy Unknown STAYS AWAY Verified 09/24/20 01:19 FROM SINCE ON BLOOD THINNERS clarithromycin Allergy Unknown Unknown Verified 09/24/20 01:19 codeine Allergy Unknown Unknown Verified 09/24/20 01:19 diphtheria toxoid,fluid Allergy Unknown Unknown Verified 09/24/20 01:19 iron Allergy Unknown PER PT'S Verified 09/24/20 01:29 SON morphine Allergy Unknown Unknown Verified 09/24/20 01:19 prednisone Allergy Unknown Unknown Verified 09/24/20 01:19 SEAFOOD Allergy Severe VOMITING Uncoded 09/24/20 01:19 Home Medications Home Medications Medication Instructions Recorded Confirmed Type [id number] 1 tab PO Q6H PRN tab 09/04/19 09/24/20 History 50 mg-325 mg-40 mg tablet spironolactone 25 mg tablet 25 mg PO DAILY tab 09/04/19 09/24/20 History tramadol 50 mg tablet 50 - 100 mg PO Q6H PRN tab MDD 09/04/19 09/24/20 History 400 MG/DAY levothyroxine [Synthroid] 50 mcg PO QAM 03/17/20 09/24/20 History lidocaine 1 applic TOPICAL DIRECTED PRN 03/17/20 09/24/20 History apixaban 5 mg tablet 5 mg PO BID 04/14/20 09/24/20 History acetaminophen [Tylenol Extra 500 - 1,000 mg PO Q6H PRN 09/24/20 09/24/20 History Strength] cholecalciferol (vitamin D3) 2,000 unit PO DAILY 09/24/20 09/24/20 History clobetasol 1 applic TOPICAL DIRECTED PRN 09/24/20 09/24/20 History famotidine 20 mg PO DAILY PRN 09/24/20 09/24/20 History ibuprofen 200 - 600 mg PO DIRECTED PRN 09/24/20 09/24/20 History lisinopril 10 mg PO DAILY 09/24/20 09/24/20 History mupirocin [Bactroban] 1 applic TOPICAL DIRECTED PRN 09/24/20 09/24/20 History peg 400-propylene glycol [Systane 1 drp OPHTHALMIC (EYE) DIRECTED 09/24/20 09/24/20 History Ultra] PRN triamcinolone acetonide 1 applic TOPICAL DIRECTED PRN 11/12/20 11/12/20 History Patient History Medical History Hypertension Hypothyroid Migraine Surgical History History of cataract surgery History of cholecystectomy History of hysterectomy History of tooth extraction S/P knee replacement Family History Son Asthma Diabetes Hypertension Pulmonary embolism Sinusitis Mother Diabetes Pulmonary embolism Father Pulmonary embolism Denies family history of Ovarian cancer Breast cancer Colorectal cancer Uterus cancer Social History Smoking Status: Never smoker Hx Alcohol Use: No Hx Substance Use: No Preferred Language: Czech Communication Ability: Effective K 12 Principal Required: No Beliefs That Will Affect Care: None Current Living Situation: Family Feels Safe at Home: Yes Safety Concerns: Feels Safe At This Time Review of Systems Review of Systems: All systems reviewed & are unremarkable except as noted in Subjective Physical Exam Constitutional: WD/WN, vitals as above + obese Eyes: no eyelid abnormality and no conjunctival abnormality ENMT: Ears: no external ear abnormality Nose: no external nose abnormality Neck: normal visual inspection and trachea midline Respiratory: normal respiratory effort; no respiratory distress and no labored breathing Cardiovascular: Rate/Rhythm: regular rhythm and + tachycardic Heart Sounds: no murmur Gastrointestinal (Abdomen): Inspection/Auscultation: + abdomen distended and normal bowel sounds Percussion/Palpation: + abdomen tender (diffusely tender RUQ, LUQ, LLQ), + guarding, abdomen soft and + tympanic to percussion; abdomen not rigid Musculoskeletal: Extremities: extremities normal to inspection Neurologic: PERRL, EOMI, accommodation nl, no face palsy, no dysarthria Psychiatric: A+Ox3, euthymic affect Results & Data ([facility]) Vital Signs (Past 12 Hours) Vital Signs Pulse Pulse Resp BP Pulse Ox 09/24/20 12:00 105 H 18 124/68 100 09/24/20 10:00 110 H 20 126/85 100 09/24/20 08:33 110 H 20 116/86 100 09/24/20 08:15 103 H 103 H 20 127/81 99 09/24/20 08:00 103 H 20 127/81 100 09/24/20 07:53 105 H 20 116/86 100 09/24/20 07:50 104 H 20 127/81 100 09/24/20 06:00 96 H 18 120/92 100 09/24/20 04:51 101 H 18 120/81 98 09/24/20 01:48 98 H 18 130/88 100 Laboratory Results - last 24 hr 09/24/20 09/24/20 09/24/20 00:36 00:36 00:36 WBC 22.97 H RBC 4.50 Hgb 14.9 Hct 44.3 MCV 98.4 MCH 33.1 MCHC 33.6 RDW Std Deviation 49.2 H RDW Coeff of Radha 13.7 Plt Count 233 MPV 10.0 Immature Gran % (Auto) 0.3 Neut % (Auto) 85.8 Lymph % (Auto) 7.1 [place] % (Auto) 6.4 Eos % (Auto) 0.3 Baso % (Auto) 0.1 Neut # (Auto) 19.72 H Lymph # (Auto) 1.62 [place] # (Auto) 1.47 H Eos # (Auto) 0.07 Baso # (Auto) 0.02 Immature Gran # (Auto) 0.07 H Sodium 135 L Potassium 3.4 L Chloride 103 Carbon Dioxide 24 Anion Gap 8.0 BUN 17 Creatinine 1.60 H Est Cr Clr Drug Dosing 37.7 Est GFR ( Amer) 36.9 Est GFR (Non-Af Amer) 31.9 BUN/Creatinine Ratio 10.4 Glucose 129 H Lactate 2.9 H* Calcium 10.7 H Total Bilirubin 0.4 AST 23 ALT 25 Alkaline Phosphatase 368 H Total Protein 8.2 Albumin 4.1 Globulin 4.1 H Albumin/Globulin Ratio 1.0 Lipase 203 Procalcitonin Stl C. diff Tox B Gene Blood Type Antibody Screen 09/24/20 09/24/20 09/24/20 00:37 01:55 02:09 WBC RBC Hgb Hct MCV MCH MCHC RDW Std Deviation RDW Coeff of Radha Plt Count MPV Immature Gran % (Auto) Neut % (Auto) Lymph % (Auto) [place] % (Auto) Eos % (Auto) Baso % (Auto) Neut # (Auto) Lymph # (Auto) [place] # (Auto) Eos # (Auto) Baso # (Auto) Immature Gran # (Auto) Sodium Potassium Chloride Carbon Dioxide Anion Gap BUN Creatinine Est Cr Clr Drug Dosing Est GFR ( Amer) Est GFR (Non-Af Amer) BUN/Creatinine Ratio Glucose Lactate Calcium Total Bilirubin AST ALT Alkaline Phosphatase Total Protein Albumin Globulin Albumin/Globulin Ratio Lipase Procalcitonin 0.08 Stl C. diff Tox B Gene Negative Cdiff Gene Blood Type A Positive Antibody Screen NEGATIVE 09/24/20 09/24/20 09/24/20 02:09 03:30 13:14 WBC RBC Hgb 14.8 Hct 44.4 MCV MCH MCHC RDW Std Deviation RDW Coeff of Radha Plt Count MPV Immature Gran % (Auto) Neut % (Auto) Lymph % (Auto) [place] % (Auto) Eos % (Auto) Baso % (Auto) Neut # (Auto) Lymph # (Auto) [place] # (Auto) Eos # (Auto) Baso # (Auto) Immature Gran # (Auto) Sodium Potassium Chloride Carbon Dioxide Anion Gap BUN Creatinine Est Cr Clr Drug Dosing Est GFR ( Amer) Est GFR (Non-Af Amer) BUN/Creatinine Ratio Glucose Lactate 4.2 H* Pending Calcium Total Bilirubin AST ALT Alkaline Phosphatase Total Protein Albumin Globulin Albumin/Globulin Ratio Lipase Procalcitonin Stl C. diff Tox B Gene Blood Type Antibody Screen (1) Abdominal pain Abdominal location: lower abdomen, unspecified Qualified Code(s): R10.30 - Lower abdominal pain, unspecified
--- NOTE | 2020-09-24 13:10 | Electrocardiogram Report ---
Test Reason : Blood Pressure : / mmHG Vent. Rate : 093 BPM Atrial Rate : 093 BPM P-R Int : 210 ms QRS Dur : 076 ms QT Int : 366 ms P-R-T Axes : 046 -28 040 degrees QTc Int : 455 ms Sinus rhythm with 1st degree A-V block Minimal voltage criteria for LVH, may be normal variant Cannot rule out Anterior infarct , age undetermined Abnormal ECG When compared with ECG of 17-MAR-2020 16:20, Premature ventricular complexes are no longer Present Confirmed by Madi Lawrence ([id number]) on 09/24/2020 1:09:35 PM Referred By: REFERRED SELF Confirmed By:Madi Lawrence
[2020-09-24] MEDS: PIPERACILLIN/TAZOBACTAM 3.375 GM in DEXTROSE 5% 100 ML IV SCH ×2 (17:30→23:49)
--- NOTE | 2020-09-24 19:55 | Communication Note ---
Date of Service: September 24, 2020 pt seen by myself, paris delgadillo ms2 in f/u from dr sandra's early am admission. doing much better as the day progresses. d/w dr swetha sterling as well. suspect infectious enteritis - food borne pathogen most likely. improving. continue current care. blood seems more from anticoagulation/?fissure or hemorrhoid the way she has described (and dr lomeli examined) bloody stools - more stools with blood streaks and flecks than actual bloody diarrhea.
[2020-09-24] MEDS: HEPARIN SOD 5,000 UNIT/0.5 ML VIAL SQ SCH (20:03)
--- NOTE | 2020-09-24 22:03 | Billing Data ---
Date of Service September 24, 2020 Coding Level of Care Code 98235 Initial Inpt Care Lvl 3
[2020-09-25] MEDS: SODIUM CHLORIDE 0.9% 1000ML 1,000 ML IV SCH ×3 (01:07→17:14)
[2020-09-25] MEDS: LEVOTHYROXINE SODIUM 50 MCG TABLET PO SCH (05:59)
--- NOTE | 2020-09-25 06:10 | Hospitalist Progress Note ---
Date of Service September 25, 2020 Assessment & Plan Admission and Anticipated Discharge Date Admission Date: September 24, 2020 Results & Data Results & Data ([facility]) Vital Signs (Past 12 Hours) Vital Signs Temp Pulse Pulse Resp BP Pulse Ox 09/25/20 04:27 37.0 C 96 H 18 102/64 97 09/24/20 23:28 37.0 C 102 H 18 107/68 96 09/24/20 22:47 108 H 09/24/20 20:00 37.1 C 107 H 18 108/68 100
[2020-09-25] MEDS: BUTALBITAL/ACETAMIN/CAFFEINE TAB PO PRN (07:13)
[2020-09-25 07:46] LABS: Albumin Level 2.7 gm/dl (3.4-5.0); BUN Creatinine Ratio 17.5 (10-20); Calcium 9.3 mg/dl (8.5-10.1); Creatinine Clr Calc Pharmacy 41.6 ml/min; Est GFR (African American) 41.6; Est GFR (Non-African American) 35.9; Potassium 3.8 mmol/L (3.5-5.1)
[2020-09-25 07:54] LABS: Albumin Globulin Ratio 0.7 (0.9-2); Bilirubin,Total 0.9 mg/dl (0.2-1); Globulin 3.7 gm/dl (2.5-4.0); Total Protein 6.4 gm/dl (6.4-8.2)
--- NOTE | 2020-09-25 08:39 | Gastroenterology Progress Note ---
Date of Service September 25, 2020 Assessment & Plan (1) Acute GI bleeding: (2) Colitis: (3) Abdominal pain: Ischemia vs infectious most likely. Await stool studies. Negative c.diff. Antibiotics for now. Supportive care. Colonoscopy is not recommended at this time secondary to increased risk of perforation. Recommend continuation of current plan of care. Please refer to supervising physician addendum for further recommendations. Admission and Anticipated Discharge Date Admission Date: September 24, 2020 Supervising Physician Co-Signing Physician Notes I have seen and examined the patient. I agree with note above by BRIGID Yancey except as noted below. HPI Pt states she feels better but still with loose stools and abd pain. NO blood per patient. PE Abdomen subjective diffuse pain but pos bs, soft, no guarding nor rebound A/P diarrhea rectal bleeding abd pain WBC is better and symptomatically somewhat better. Continue Abx. DC or Mg as it can cause diarrhea and use IV Mg is needed. Subjective Patient reports a migraine this morning. Has history of migraines and was medicated with Fioricet by nursing. Patient reports loose bowel movements without blood. Denies nausea or vomiting. Reports continued lower abdominal pain. Patient repeating self multiple times during assessment. Review of Systems Review of Systems: All systems reviewed & are unremarkable except as noted in Subjective Physical Exam Constitutional: WD/WN, vitals as above + obese Eyes: no eyelid abnormality and no conjunctival abnormality ENMT: Ears: no external ear abnormality Nose: no external nose abnormality Neck: normal visual inspection and trachea midline Respiratory: normal respiratory effort; no respiratory distress and no labored breathing Cardiovascular: Rate/Rhythm: regular rhythm and + tachycardic Heart Sounds: no murmur Gastrointestinal (Abdomen): Inspection/Auscultation: + abdomen distended and normal bowel sounds Percussion/Palpation: + abdomen tender (diffusely tender RLQ, LLQ), abdomen soft and + tympanic to percussion; no guarding and abdomen not rigid Musculoskeletal: Extremities: extremities normal to inspection Neurologic: PERRL, EOMI, accommodation nl, no face palsy, no dysarthria Psychiatric: A+Ox3, euthymic affect Results & Data ([facility]) Vital Signs (Past 12 Hours) Vital Signs Temp Pulse Pulse Resp BP Pulse Ox 09/25/20 07:29 37.2 C 116 H 16 119/74 96 09/25/20 04:27 37.0 C 96 H 18 102/64 97 09/24/20 23:28 37.0 C 102 H 18 107/68 96 09/24/20 22:47 108 H Laboratory Results - last 24 hr 09/24/20 09/24/20 09/24/20 13:14 14:10 14:10 Sodium Potassium Chloride Carbon Dioxide Anion Gap BUN Creatinine Est Cr Clr Drug Dosing Est GFR ( Amer) Est GFR (Non-Af Amer) BUN/Creatinine Ratio Glucose Lactate 3.4 H* Calcium Total Bilirubin AST ALT Alkaline Phosphatase Total Protein Albumin Globulin Albumin/Globulin Ratio Stool Occult Bld Scrn COVID-19 Eval Order Covid19 IDNow [facility] SARS-CoV-2, RNA, NAAT NEGATIVE 09/24/20 09/25/20 09/25/20 15:12 03:35 06:59 Sodium 133 L Potassium 3.8 Chloride 106 Carbon Dioxide 19 L Anion Gap 8.0 BUN 25 H Creatinine 1.45 H Est Cr Clr Drug Dosing 41.6 Est GFR ( Amer) 41.6 Est GFR (Non-Af Amer) 35.9 BUN/Creatinine Ratio 17.5 Glucose 87 Lactate 3.0 H* Calcium 9.3 Total Bilirubin 0.9 D AST 24 ALT 24 Alkaline Phosphatase 191 H Total Protein 6.4 D Albumin 2.7 L Globulin 3.7 Albumin/Globulin Ratio 0.7 L Stool Occult Bld Scrn Positive A COVID-19 Eval Order SARS-CoV-2, RNA, NAAT 09/25/20 07:06 Sodium Potassium Chloride Carbon Dioxide Anion Gap BUN Creatinine Est Cr Clr Drug Dosing Est GFR ( Amer) Est GFR (Non-Af Amer) BUN/Creatinine Ratio Glucose Lactate 2.8 H* Calcium Total Bilirubin AST ALT Alkaline Phosphatase Total Protein Albumin Globulin Albumin/Globulin Ratio Stool Occult Bld Scrn COVID-19 Eval Order SARS-CoV-2, RNA, NAAT (1) Abdominal pain Abdominal location: lower abdomen, unspecified Qualified Code(s): R10.30 - Lower abdominal pain, unspecified
--- NOTE | 2020-09-25 09:40 | Medical Student Progress Note ---
Date of Service September 25, 2020 Assessment & Plan Admission and Anticipated Discharge Date Admission Date: September 24, 2020 1) Abdominal Pain Ischemia vs infectious most likely. Mesenteric U/S showed no abnormalities. Await stool studies. Negative c.diff. - Piperacillin Sod/Tazobactam 115mls @28.75/hr IV Q8H [facility] - Supportive care. - Gi does not recommend colonoscopy, secondary to increased risk of perforation. - Continuing on IVF - NS 1,000 mls @ 125 mls/hr IV Q8H [facility] 2) Migraine Chronic. - Treated with Acetaminophen/Butalbital/Caffeine 3) Hx of DVT Holding home Eliquis. Consider restarting today or tomorrow. - Heparin 5000 units SQ Q12 [facility] 4) Hypothyroidism - Levothyroxine 50mcg PO 5) JULIANNE - Holding Lisinopril and spironolactone until it resolves DVT Prophy: Heparin F/E/N: Clear Liquid Dispo: Medicine Full Code Current Inpatient Medications Acetaminophen (Acetaminophen 325 Mg Tab) 650 mg PO Q4H PRN PRN Reason: Pain or Fever Stop: 10/24/20 07:37 Acetaminophen/Butalbital/Caffeine (Butalbital/Acetamin/Caffeine Tab) 1 tab PO Q6H PRN PRN Reason: Headache Stop: 10/24/20 07:37 Last Admin: 09/25/20 07:13 Dose: 1 tab Documented by: Heparin Sodium (Porcine) (Heparin Sod 5,000 Unit/0.5 Ml Vial) 5,000 units SQ Q12 [facility] Stop: 10/24/20 20:59 Last Admin: 09/24/20 20:03 Dose: 5,000 units Documented by: Sodium Chloride (Nss 1000ml) 1,000 mls @ 125 mls/hr IV .Q8H [facility] Stop: 10/24/20 01:59 Last Admin: 09/25/20 01:07 Dose: 125 mls/hr Documented by: Pantoprazole Sodium 40 mg/ (Syringe) 10 mls @ 5 mls/min IV BID [facility] Stop: 10/24/20 08:59 Last Admin: 09/24/20 20:00 Dose: 5 mls/min Documented by: Famotidine 20 mg/ Syringe 5 mls @ 2.5 mls/min IV BID [facility] Stop: 10/24/20 08:59 Last Admin: 09/24/20 20:00 Dose: 2.5 mls/min Documented by: Piperacillin Sod/Tazobactam (Sod 3.375 gm/ Dextrose) 115 mls @ 28.75 mls/hr IV Q8H [facility]; Protocol Stop: 10/04/20 15:59 Last Infusion: 09/25/20 03:58 Dose: Infused Documented by: Levothyroxine Sodium (Levothyroxine Sodium 50 Mcg Tablet) 50 mcg PO DAILYBB [facility] Stop: 10/24/20 08:59 Last Admin: 09/25/20 05:59 Dose: 50 mcg Documented by: Lidocaine (Lidocaine Hcl 5% Oint 30 Gm Tube) 1 appln TOP DAILY PRN PRN Reason: Neuralgia Pain Stop: 10/24/20 07:37 Magnesium Oxide (Magnesium Oxide 400 Mg Tab) 400 mg PO BID [facility] Stop: 10/24/20 08:59 Last Admin: 09/24/20 21:11 Dose: 400 mg Documented by: Miscellaneous Information (Piperacill/Tazobac Consult Active) 1 ea N/A UD PRN PRN Reason: Consult Stop: 10/24/20 15:44 Tramadol HCl (Tramadol Hcl 50 Mg Tablet) 50 - 100 mg PO Q6H PRN PRN Reason: Pain Stop: 10/24/20 07:37 Triamcinolone Acetonide (Triamcinolone Acet 0.1% Oint 15 Gm Tube) 1 appln TOP DAILY PRN PRN Reason: Skin Irritation Stop: 10/24/20 07:37 Vitamin D (Cholecalciferol 1,000 Units 25 Mcg Tab) 2,000 units PO DAILY [facility] Stop: 10/25/20 08:59 Supervising Attestation I personally examined the patient and verified all owens points of history and exam, discussed case, and agree with decision making with Derrell Blake MS2. feeling much better still had some diarrhea - but overall better and typically has been getting more formed. did have some uncontrollable urgency - right as she was about to eat lunch otherwise does feel better belly feels better too vitals noted nad heent nc at mmm breathing unlabored no accessory muscles good effort skin no rashes no pallor or icterus infectious enteritis - slowly ipmroving, toxic enough to warrant abx and bleeding appears MUCH more c/w bleeding from inflammation and anticoagulation NOT EHEC type picture. continue current care, supportive care, time DVT - 5 months ago. for now holding eliquis since still having some blood w BMs but lessning to where we can probably resume tomorrow. SQ heparin proph dosing (aurora since clot is old enough to be stable) otherwise as above, improving Subjective Pt was in the commode when I walked in this morning. Pt has a migraine this morning and has received foricet. Denies N/V. She reports min of 12 bowel mov ements over night. Stools have been "in bits" but later in the morning they have progressed to more liquid. Only trace dots of blood. Pt reports no abdominal pain, only mild discomfort. She reports some desire for food but had some "burning" following a serving of jello. She is still eating broth and clear liquids. Review of Systems Review of Systems: Const: No fever, no chills, no weight loss. HEENT: Endorses Headache Cardi: No chest pain, no heart palpitations Resp: No SOB Abd: See HPI Results & Data ([facility]) Vital Signs (Past 12 Hours) Vital Signs Temp Pulse Pulse Resp BP Pulse Ox 09/25/20 07:29 37.2 C 116 H 16 119/74 96 09/25/20 04:27 37.0 C 96 H 18 102/64 97 09/24/20 23:28 37.0 C 102 H 18 107/68 96 09/24/20 22:47 108 H
[2020-09-25 09:44] LABS: Basophils # (auto) 0.01 K/uL (0-0.2); Basophils % (auto) 0.1 %; Eosinophils # (auto) 0.02 K/uL (0-0.5); Eosinophils % (auto) 0.1 %; Hematocrit (blood only) 32.3 % (37-47); Hemoglobin 10.9 g/dL (12.0-16.0); Immature Granulocytes # (auto) 0.04 K/uL (0.00-0.02); Immature Granulocytes % (auto) 0.3 %; Lymphocytes # (auto) 1.18 K/uL (1.2-3.4); Lymphocytes % (auto) 7.7 %; Mean Corpuscular Hemoglobin 32.7 pg (25-34); Mean Corpuscular Hgb Conc 33.7 g/dL (32-36); Mean Platelet Volume 10.1 fL (7.4-10.4); Monocytes # (auto) 0.96 K/uL (0.11-0.59); Monocytes % (auto) 6.3 %; Neutrophils # (auto) 13.15 K/uL (1.4-6.5); Neutrophils % (auto) 85.5 %; Platelet Count 199 K/uL (130-400); RDW Coefficient of Variation 14.1 % (11.5-14.5); RDW Standard Deviation 50.6 fL (36.4-46.3); Red Blood Count 3.33 M/uL (4.2-5.4); White Blood Count 15.36 K/uL (4.8-10.8)
[2020-09-25] MEDS: CHOLECALCIFEROL 1,000 UNITS 25 MCG TAB PO SCH (09:47)
[2020-09-25] MEDS: PIPERACILLIN/TAZOBACTAM 3.375 GM in DEXTROSE 5% 100 ML IV SCH (09:47)
[2020-09-25] MEDS: PANTOprazole 40 MG in SYRINGE 0 ML IV SCH ×2 (09:47→21:44)
[2020-09-25] MEDS: HEPARIN SOD 5,000 UNIT/0.5 ML VIAL SQ SCH ×2 (09:48→21:43)
[2020-09-25] MEDS: MAGNESIUM OXIDE 400 MG TAB PO SCH (10:09)
[2020-09-25] MEDS: FAMOTIDINE 20 MG in SYRINGE 3 ML IV SCH ×2 (10:09→22:03)
[2020-09-25] MEDS: AMPICILLIN/SULBACTAM SOD 1,500 MG in 0.9 % SODIUM CHLORIDE 100 ML IV SCH ×2 (17:11→21:44)
--- NOTE | 2020-09-25 17:11 | Billing Data ---
Date of Service September 25, 2020 Coding Level of Care Code 44682 Subseq Hosp Care Lvl 2
[2020-09-26] MEDS: SODIUM CHLORIDE 0.9% 1000ML 1,000 ML IV SCH ×2 (01:57→10:30)
[2020-09-26] MEDS: AMPICILLIN/SULBACTAM SOD 1,500 MG in 0.9 % SODIUM CHLORIDE 100 ML IV SCH ×3 (05:12→15:22)
[2020-09-26] MEDS: LEVOTHYROXINE SODIUM 50 MCG TABLET PO SCH (06:17)
[2020-09-26 07:20] VITALS: BP 114/65; TEMP 98.4; O2SAT 98
[2020-09-26 08:00] LABS: Basophils # (auto) 0.02 K/uL (0-0.2); Basophils % (auto) 0.2 %; Hematocrit (blood only) 28.4 % (37-47); Hemoglobin 9.5 g/dL (12.0-16.0); Immature Granulocytes # (auto) 0.02 K/uL (0.00-0.02); Immature Granulocytes % (auto) 0.2 %; Lymphocytes % (auto) 16.8 %; Mean Corpuscular Hemoglobin 32.6 pg (25-34); Mean Corpuscular Hgb Conc 33.5 g/dL (32-36); Mean Corpuscular Volume 97.6 fL (80-100); Monocytes # (auto) 0.73 K/uL (0.11-0.59); Monocytes % (auto) 7.2 %; Neutrophils # (auto) 7.56 K/uL (1.4-6.5); Neutrophils % (auto) 74.6 %; Platelet Count 176 K/uL (130-400); RDW Coefficient of Variation 14.2 % (11.5-14.5); RDW Standard Deviation 51.2 fL (36.4-46.3); Red Blood Count 2.91 M/uL (4.2-5.4); White Blood Count 10.13 K/uL (4.8-10.8)
[2020-09-26] MEDS: PANTOprazole 40 MG in SYRINGE 0 ML IV SCH (08:26)
[2020-09-26] MEDS: FAMOTIDINE 20 MG in SYRINGE 3 ML IV SCH (08:26)
[2020-09-26] MEDS: CHOLECALCIFEROL 1,000 UNITS 25 MCG TAB PO SCH (08:26)
[2020-09-26] MEDS: HEPARIN SOD 5,000 UNIT/0.5 ML VIAL SQ SCH (08:26)
[2020-09-26 09:25] LABS: Albumin Globulin Ratio 0.7 (0.9-2); Albumin Level 2.3 gm/dl (3.4-5.0); BUN Creatinine Ratio 15.6 (10-20); Bilirubin,Total 0.5 mg/dl (0.2-1); Calcium 8.7 mg/dl (8.5-10.1); Creatinine Clr Calc Pharmacy 75.6 ml/min; Est GFR (African American) 86.7; Est GFR (Non-African American) 74.8; Globulin 3.5 gm/dl (2.5-4.0); Potassium 3.4 mmol/L (3.5-5.1); Total Protein 5.8 gm/dl (6.4-8.2)
--- NOTE | 2020-09-26 15:05 | Discharge Summary ---
Date of Service September 26, 2020 Admission HPI Per Admitting Provider Sophia is a 70yo F with a hx of DVT and HTN who presents with an episode of GI bleeding and diarrhea. She denies has not had symptoms like this before. She sometimes struggles with bowel movements Today she had to go to the bathroom and had a sense of unusual urgency. She had had [employer] chicken tenders about 45 minutes prior to onset of symptoms. She had' an insane urgency' but couldn't pass a bowel movement. She has chronic post herpatic neuralgia and she tends ot hold her breath with BMs which can cause her to pass out. She had a small liquid/clear bowel movement. She started to feel faint which made her nervous and she called for one of her sons to help her. They helped her to the bed. She was 'clammy, covered in sweat, and weak' per her sons report. She was responding and coherant, but seemed very weak. Her son checked her blood pressure which was 117/80 which on recheck it a low fo 101/60s. His brother is a diabetic so they checked her blood sugar which was 141. Her temperature while cold and clammy was 67 by forehead thermometer which made her son very nervous. She had a very large bowel movement after getting pain medicine which made her feel much better, but which had some bright red blood. Denies dark red blood. She is on blood thinners because of a blood clot She was very ill last winter with viral illnesses and had antibiotics after which caused her to develop redness and swelling in her legs which also developed blood clots requiring her to have blood thinners. 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 She is not sure how much she worries phsycologically but she gets very nervous around having bowel movements since. She reports she has lichen sclerosis on clobetasol and reports she is immune compromised because of this which makes her nervous to come out in public. Takes tylenol, does not use ibuprofen/alieve. Uses fioricet for migranes, using every day for 1 day. She gets a sour stomach from the medicine intermittently off and on for a few days, Last colonoscopy was several years ago, was completely normal. Had an endoscopy which showed 'some red spots' but which did not show ulcer. Takes famotidine for 'bad spells' on average twice per week. Allergies: Reports cannot take iron due to lower blood pressure, allergic to contrast, and allergic to shellfish. she reports she CAN have PCN now. Medhx: Reviewed Shx: reviewed Medications: reviewed Social: Lives with her two sons. Independently ambulatory. No sick contacts, hasn't been out of the house at all and quarantining carefully. No tobacco, no alcohol, no recreational drug use. Code Status: Full Code Principal Diagnosis Infectious colitis Discharge Exam Constitutional well developed and well nourished Eyes PERRL, conjunctivae normal, anicteric sclerae Respiratory normal respiratory effort, lungs clear to auscultation Cardiovascular Rate/Rhythm: regular rate and regular rhythm Heart Sounds: no gallop, no murmur and no cardiac rub Vessels: normal peripheral pulses Gastrointestinal (Abdomen) Inspection/Auscultation: abdomen not distended and no abdominal wall ecchymosis Percussion/Palpation: abdomen soft; abdomen nontender, no guarding and no hepatosplenomegaly Neurologic patellar DTR's 2+ bilat, sensation intact and PERRL, EOMI, accommodation nl, no face palsy, no dysarthria Psychiatric A+Ox3, euthymic affect Discharge Data Allergies Allergy/AdvReac Type Severity Reaction Status Date / Time Iodinated Contrast Media Allergy Severe PASSING OUT Verified 09/24/20 01:19 bacitracin Allergy Intermediate REDNESS, Verified 09/24/20 01:19 RASH, "MAKES IT WORSE" latex Allergy Intermediate SKIN Verified 09/24/20 01:29 IRRITATION, ITCHY mold Allergy Intermediate CONGESTION Verified 09/24/20 01:27 neomycin Allergy Intermediate REDNESS, Verified 09/24/20 01:19 RASH, "MAKES IT WORSE" polymyxin B Allergy Intermediate REDNESS, Verified 09/24/20 01:19 RASH, "MAKES IT WORSE" aspirin Allergy Unknown STAYS AWAY Verified 09/24/20 01:19 FROM SINCE ON BLOOD THINNERS clarithromycin Allergy Unknown Unknown Verified 09/24/20 01:19 codeine Allergy Unknown Unknown Verified 09/24/20 01:19 diphtheria toxoid,fluid Allergy Unknown Unknown Verified 09/24/20 01:19 iron Allergy Unknown PER PT'S Verified 09/24/20 01:29 SON morphine Allergy Unknown Unknown Verified 09/24/20 01:19 prednisone Allergy Unknown Unknown Verified 09/24/20 01:19 Fish Containing Products Allergy Verified 09/25/20 13:16 fish derived Allergy Verified 09/25/20 13:17 fish oil Allergy Verified 09/25/20 13:17 shellfish derived Allergy Verified 09/25/20 15:47 grapefruit AdvReac Verified 09/25/20 17:16 orange juice AdvReac Verified 09/25/20 17:15 SEAFOOD Allergy Severe VOMITING Uncoded 09/24/20 01:19 Consultations 09/24/20 03:18 ED Decision to Admit Stat 09/24/20 07:38 Consult Gastroenterology Routine Ordered Studies 09/24/20 01:03 CT abd pelvis wo con Urgent 09/24/20 07:38 US duplex mesenteric Stat Hospital Course (1) Abdominal pain: Sophia is a 70yo F with a hx of DVT and HTN who presents with an episode of GI bleeding and diarrhea. Infectious colitis CT abdomen: Diffuse colonic distention with fluid and some thickening of sigmoid colon, diffuse colitis and partial obstruction. No wall pneumatosis or portal venous gas. C. difficile negative Stool cultures pending, blood cultures pending Patient unable to have contrast due to fear allergy per patient Mesenteric Dopplers suggestive of less than 50% stenosis within the mid superior mesenteric artery continue Augmentin 875mg BID for 6 additional doses Total Time Total Time Spent Total Time Spent (In Minutes): <30 Discharge Plan Discharge Items Patient Disposition: Home - Self-Care Reason For Visit: DIARRHEA, ABDOMINAL PAIN Discharge Diagnosis: infectious colitis (improving - see below) Activity: Resume your previous activity Non-emergency contact: Primary Care Provider Call non-emergency contact if: you have any medication questions, your symptoms worsen and your temperature is above 101 Follow-up/Referrals: Jaki Escoto DO [Primary Care Provider] - Diet: Regular Addtl Attending Provider Instructions: infectious colitis -while initially the way your symptoms started presented a wide array of concerns, fortunately after further review it appeared to fit with an infectious colitis (a nonspecific food poisoning type of thing) -- it is getting better nicely. while most food poisoning will get better without treatment, conventionally when someone is sick enough to be hospitalized, we do use a short course of antibiotics to hasten resolution. at this point it will be quite safe to transition to augmentin (for all purposes basically the oral version of the unasyn you've been on) for 6 more doses (next dose at bedtime tonight) -it's safe to get back on your regular medicines now, to be thorough/complete we will want you to get labwork (BMP) drawn in the office mid/late next week just to ensure your electrolytes look good reflux -here in the hospital we've been using protonix (pantoprazole) twice a day and pepcid (famotidine) twice a day on top of it. since that seems to be helping - continue exactly that regimen (prescriptions sent) for the next week. after that, try to stop taking the pepcid (famotidine) and see how you feel. 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 Pending Studies at Discharge: No Stand-Alone Forms: My [facility] PROnoise, Smoking Cessation Medications and DC Order Prescriptions: New amoxicillin-pot clavulanate [Augmentin] 875-125 mg tablet 1 tab PO BID Qty: 6 RF: 0 pantoprazole [Protonix] 40 mg tablet,delayed release (DR/EC) 40 mg PO BID 14 Days Qty: 28 RF: 0 famotidine [Pepcid] 20 mg tablet 20 mg PO BID Qty: 14 RF: 0 Continued Eliquis 5 mg tablet 5 mg PO BID RF: 0 beqihogsit-bzgvgwcvnxlxq-nqyc 50-325-40 mg tablet 1 tab PO Q6H PRN (Reason: Headache) RF: 0 tramadol 50 mg tablet 50 - 100 mg PO Q6H MDD 400 MG/DAY PRN (Reason: Pain) RF: 0 spironolactone 25 mg tablet 25 mg PO DAILY RF: 0 levothyroxine [Synthroid] 50 mcg tablet 50 mcg PO QAM RF: 0 lidocaine 5 % ointment 1 applic topical DIRECTED PRN (Reason: Neuralgia Pain) RF: 0 acetaminophen [Tylenol Extra Strength] 500 mg Tablet 500 - 1,000 mg PO Q6H PRN (Reason: Pain) RF: 0 famotidine 20 mg Tablet 20 mg PO DAILY PRN (Reason: Indigestion) RF: 0 triamcinolone acetonide 0.1 % ointment 1 applic TOPICAL DIRECTED PRN (Reason: Skin Irritation) RF: 0 lisinopril 10 mg tablet 10 mg PO DAILY RF: 0 ibuprofen 200 mg Tablet 200 - 600 mg PO DIRECTED PRN (Reason: Pain) RF: 0 mupirocin 2 % Ointment 1 applic TOPICAL DIRECTED PRN (Reason: Skin Irritation) RF: 0 clobetasol 0.05 % ointment 1 applic TOPICAL DIRECTED PRN (Reason: Skin Irritation) RF: 0 Systane Ultra 0.4-0.3 % Drops 1 drp OPHTHALMIC (EYE) DIRECTED PRN (Reason: Dry Eyes) RF: 0 cholecalciferol (vitamin D3) 50 mcg (2,000 unit) tablet 2,000 unit PO DAILY RF: 0 Discharge Orders: Discharge Order (Routine); Ordered 09/26/20 Ordered By: Wili Brown Admission Data Admit Date/Time: 09/24/20 04:52 Attending Provider: Dev Mao Admit Provider: Primitivo Domingo Primary Care Provider: Jaki Escoto Other Providers: Jaime Gomez ; Nick Murphy Supervising Physician Co-Signing Physician Notes I personally examined the patient and verified all owens points of history and exam, discussed case, and agree with decision making with Dr Brown eating better belly feels better stools forming feels up to going home vitals noted nad heent nc at mmm breathing unlabored no accessory muscles good e ffort skin no rashes no pallor or icterus abd soft nd nt infectious enteritis - improving - safe/stable for home, finish course of abx w augmentin DVT - 5 months ago. eliquis held a few days due to bleeding - although was on SQ heparin at the time - but safe to resume eliquis at this point otherwise as above, improving and safe for home Resident Activity Tracking Resident Involvement: Resident Care Provided Care Provided: Adult Hospital Medicine
[2020-09-26 15:21] VITALS: PULSE 88
--- NOTE | 2020-09-26 16:50 | Billing Data ---
Date of Service September 26, 2020 Coding Level of Care Code D/C Day Management <30 mins
== END 2020-09-26 15:58 | disposition home or self-care (01) | DRG 392 ==
LOC: ED 23:14 → SUATTDRO 09-24 04:52 → EDINP 09-24 04:52 → 2N 09-24 16:00

== ENCOUNTER 2021-12-02 13:20 | Observation (INO) ==
--- NOTE | 2021-12-02 14:14 | XRay Report ---
XR chest 2V PA/lateral CLINICAL HISTORY: Atypical chest pain. COMPARISON STUDY: No previous studies for comparison. FINDINGS: Lung volumes are normal. Lungs are clear. Right apical densities are unchanged and favor sc arring. There is no pneumothorax or pleural effusion. Cardiac size is normal. Mediastinal contours ar e normal. There is no evidence for pulmonary edema. IMPRESSION: No acute cardiopulmonary findings. No change in appearance of the chest. ACT 112: Negative or not required by law. Electronically signed by: Abhi Young M.D. 12/02/2021 2:13 PM
[2021-12-02 14:22] LABS: Basophils # (auto) 0.02 K/uL (0-0.2); Basophils % (auto) 0.2 %; Eosinophils # (auto) 0.29 K/uL (0-0.5); Eosinophils % (auto) 3.2 %; Hematocrit (blood only) 39.2 % (37-47); Hemoglobin 12.9 g/dL (12.0-16.0); Immature Granulocytes # (auto) 0.02 K/uL (0.00-0.02); Immature Granulocytes % (auto) 0.2 %; Lymphocytes # (auto) 2.48 K/uL (1.2-3.4); Lymphocytes % (auto) 27.3 %; Mean Corpuscular Hemoglobin 33.8 pg (25-34); Mean Corpuscular Hgb Conc 32.9 g/dL (32-36); Mean Corpuscular Volume 102.6 fL (80-100); Mean Platelet Volume 10.2 fL (7.4-10.4); Monocytes # (auto) 0.71 K/uL (0.11-0.59); Monocytes % (auto) 7.8 %; Neutrophils # (auto) 5.55 K/uL (1.4-6.5); Neutrophils % (auto) 61.3 %; Platelet Count 273 K/uL (130-400); RDW Coefficient of Variation 14.8 % (11.5-14.5); RDW Standard Deviation 55.7 fL (36.4-46.3); Red Blood Count 3.82 M/uL (4.2-5.4); White Blood Count 9.07 K/uL (4.8-10.8)
[2021-12-02 14:34] LABS: INR 1.2 (0.9-1.1); Partial Thromboplastin Ratio 1.1; Partial Thromboplastin Time 27.8 Seconds (21.0-31.0); Prothrombin Time 11.6 Seconds (9.0-12.0)
[2021-12-02 14:53] LABS: Troponin I 0.21 ng/ml (0-0.04)
[2021-12-02 14:57] LABS: Albumin Globulin Ratio 1.2 (0.9-2); Albumin Level 4.3 gm/dl (3.4-5.0); BUN Creatinine Ratio 13.2 (10-20); Bilirubin,Total 0.4 mg/dl (0.2-1.0); Calcium 10.6 mg/dl (8.5-10.1); Creatinine Clr Calc Pharmacy 48.4 ml/min; Est GFR (African American) 51.4 ml/min; Est GFR (Non-African American) 44.4 ml/min; Globulin 3.6 gm/dl (2.5-4.0); Potassium 3.8 mmol/L (3.5-5.1); Total Protein 7.9 gm/dl (6.0-8.3)
[2021-12-02] MEDS ORDERED: METOPROLOL TARTRATE 1 MG/ML VIAL IV STA (15:39)
--- NOTE | 2021-12-02 15:50 | Emergency Department Note ---
Impression & Plan SOB (shortness of breath), Elevated troponin, Precordial chest pain, History of deep vein thrombosis ED Provider Note NAME: LAVELL SANCHES AGE: 71 SEX: F : 1950 ARRIVES VIA: Walk-In INFORMANT: [Patient][son] ED PROVIDER(S): [Arsenio Thompson MD] CHIEF COMPLAINT: Referred by HISTORY OF PRESENT ILLNESS: The patient is a 71 healthy female who presents to the ER with 6 weeks of symptoms. She had severe chest, shoulder and jaw pain that lasted an hour about 6 or so weeks ago. Since that timeframe, she has had episodes of pain although not as severe as the first. She has noticed exertional shortness of breath. There has been no cough or congestion. The patient does not have any diagnosed coronary disease. The patient went to her doctor's office today, she was referred to the ED for further work-up. Patient has a history of DVT, she is on Eliquis. She states that most of her symptoms occur at night, she has not really noticed exertional jaw pain al though, she has noticed exertional shortness of breath. REVIEW OF SYSTEMS: See HPI for pertinent positives and negatives. A total of ten systems were reviewed and were otherwise negative. PMHx/PSHx: See Below SOCIAL HISTORY: See Below. PHYSICAL EXAM: GENERAL: Patient is in no acute distress. Anxious. HEENT: No acute trauma, normocephalic atraumatic, mucous membranes moist, no n marcelo congestion, no scleral icterus. NECK: No stridor, no adenopathy, no meningismus, trachea is midline. LUNGS: Clear to auscultation bilaterally, no wheeze, no rhonchi, breath sounds equal. HEART: Tachycardic, slightly irregular, no murmurs. ABDOMEN: Soft, nontender, bowel sounds positive, no hernias, no peritonitis. EXTREMITIES: No cyanosis or edema, full range of motion of all the joints witho ut pain or difficulty, no signs for acute trauma. NEUROLOGIC: Oriented x 3, no acute motor or sensory deficits, no focal weakness. SKIN: No rash, no jaundice, no diaphoresis. DIFFERENTIAL DIAGNOSIS: Cardiac ischemia, aortic dissection, pulmonary embolism, pneumothorax, pneumo kenny, pericarditis, myocarditis, esophageal rupture, GERD, cholecystitis, pancreatitis, musculoskeletal, as well as other pathologies. EMERGENCY DEPARTMENT COURSE/PROCEDURES: ECG: Indication was chest pain. The ECG shows a sinus tachycardia with PACs. The rate is 106. 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 There is some ST depression in the anterior leads and some T wave flattening laterally. The QTc is 451. Compared to an ECG from 09/23/2020, the findings of old inferior infarct are now present, the ST depression in the anterior leads is now present. The T wave flattening laterally is now present. Continuous Cardiac Monitoring: An order was placed for continuous cardiac monitoring. The monitor shows a rate of 68 with sinus rhythm with PACs. MEDICAL DECISION MAKING: There is no leukocytosis or concerning anemia. There is a normal platelet count. INR mildly elevated, likely from her Eliquis use. Magnesium low 1.4. No kidney failure. No concerning liver enzyme elevation. The patient appears to be in a euthyroid state. COVID testing returned negative. Chest x-ray does not show pneumonia or CHF. ECG shows sinus tachycardia with PACs. There are some changes on her EKG as noted above when compared to previous EKGs. No acute ST elevation found. Troponin is mildly elevated. The patient is currently symptom-free but does admit to some shortness of breath with exertion ever since her original episode 6 weeks ago. She has had some intermittent jaw pain as well. I do think the patient requires a hospital stay. Further cardiac/pulmonary work-up is warranted. I did give the patient a dose of IV Lopressor, this seemed to control her heart rate. She was given IV magnesium for the lower magnesium value. I discussed the patient's case with cardiology. Hospitalization is certainly warranted. The cause for the patient's complaint is unclear. Cardiac injury is a concern. With her history of DVT, PE is a possibility however, she is on Eliquis already. She does have a contrast allergy and states she cannot have IV dye. The dye allergy will make her work-up a bit more difficult. I spoke with the patient, case management has been involved. The on-call hospitalist was consulted. Past Med/Surg History Medical History Abdominal pain Acidosis, lactic Acute GI bleeding JULIANNE (acute kidney injury) Colitis DVT (deep venous thrombosis) Hypertension Hypothyroid Leukocytosis Migraine Post herpetic neuralgia Surgical History History of cataract surgery History of cholecystectomy History of hysterectomy History of oophorectomy, unilateral History of tooth extraction S/P knee replacement Status post tubal ligation Family History Son Asthma Diabetes Hypertension Pulmonary embolism Sinusitis Mother Diabetes Pulmonary embolism Father Pulmonary embolism Denies family history of Ovarian cancer Breast cancer Colorectal cancer Uterus cancer Social History Smoking Status: Never smoker Hx Alcohol Use: No Hx Substance Use: No Preferred Language: Bulgarian Communication Ability: Effective Toe Puncher Required: No Beliefs That Will Affect Care: None marital status: Current Living Situation: Family How many Children do You have: 2 Feels Safe at Home: Yes Assistive Devices: None Allergies Allergies Allergy/AdvReac Type Severity Reaction Status Date / Time Iodinated Contrast Media Allergy Severe PASSING OUT Verified 12/02/21 16:41 bacitracin Allergy Intermediate REDNESS, Verified 12/02/21 16:41 RASH, "MAKES IT WORSE" latex Allergy Intermediate SKIN Verified 12/02/21 16:41 IRRITATION, ITCHY mold Allergy Intermediate CONGESTION Verified 12/02/21 16:41 neomycin Allergy Intermediate REDNESS, Verified 12/02/21 16:41 RASH, "MAKES IT WORSE" polymyxin B Allergy Intermediate REDNESS, Verified 12/02/21 16:41 RASH, "MAKES IT WORSE" aspirin Allergy Unknown STAYS AWAY Verified 12/02/21 16:41 FROM SINCE ON BLOOD THINNERS clarithromycin Allergy Unknown Unknown Verified 12/02/21 16:41 codeine Allergy Unknown Unknown Verified 12/02/21 16:41 diphtheria toxoid,fluid Allergy Unknown Unknown Verified 12/02/21 16:41 iron Allergy Unknown PER PT'S Verified 12/02/21 16:42 SON morphine Allergy Unknown Unknown Verified 12/02/21 16:42 prednisone Allergy Unknown Unknown Verified 12/02/21 16:42 Fish Containing Products Allergy Unknown Verified 12/02/21 16:42 fish derived Allergy Unknown Verified 12/02/21 16:42 fish oil Allergy Unknown Verified 12/02/21 16:42 shellfish derived Allergy Unknown Verified 12/02/21 16:41 grapefruit AdvReac Unknown Verified 12/02/21 16:41 orange juice AdvReac Unknown Verified 12/02/21 16:41 SEAFOOD Allergy Severe VOMITING Uncoded 09/24/20 01:19 Home Meds Home Medications Medication Instructions Recorded Confirmed pmiydxnloc-npcvlylfrudhi-luetfzpe 1 tab PO Q6H PRN tab 09/04/19 12/02/21 50 mg-325 mg-40 mg tablet spironolactone 25 mg tablet 25 mg PO DAILY tab 09/04/19 12/02/21 tramadol 50 mg tablet 50 - 100 mg PO Q6H PRN tab MDD 09/04/19 12/02/21 400 MG/DAY levothyroxine 50 mcg tablet 50 mcg PO QAM 03/17/20 12/02/21 (Synthroid) lidocaine 5 % topical ointment 1 applic TOPICAL DIRECTED PRN 03/17/20 12/02/21 apixaban 5 mg tablet (Eliquis) 5 mg PO BID 04/14/20 12/02/21 cholecalciferol (vitamin D3) 50 2,000 unit PO DAILY 09/24/20 12/02/21 mcg (2,000 unit) tablet clobetasol 0.05 % topical ointment 1 applic TOPICAL DIRECTED PRN 09/24/20 12/02/21 mupirocin 2 % topical ointment 1 applic TOPICAL DIRECTED PRN 09/24/20 12/02/21 peg 400-propylene glycol 0.4 %-0.3 2 drp OPHTHALMIC (EYE) DIRECTED 09/24/20 12/02/21 % eye drops (Systane Ultra) PRN triamcinolone acetonide 0.1 % 1 applic TOPICAL DIRECTED PRN 09/24/20 12/02/21 topical ointment Nasal Decongestant Tabs 2 tabs PO BID 12/02/21 12/02/21 Robitussin Cough Gel 1 dose PO DIRECTED 12/02/21 12/02/21 benzonatate 200 mg capsule 200 mg PO TID PRN 12/02/21 12/02/21 calcium carbonate 300 mg (750 mg) 600 mg PO BID PRN 12/02/21 12/02/21 chewable tablet (Tums) diphenhydramine HCl 25 mg capsule 50 mg PO BID 12/02/21 12/02/21 (Benadryl) ibuprofen 125 mg-acetaminophen 250 2 tab PO Q6 PRN 12/02/21 12/02/21 mg tablet (Advil Dual Action) nystatin 100,000 unit/gram topical 1 applic TOPICAL DIRECTED 12/02/21 12/02/21 powder pantoprazole 40 mg tablet,delayed 40 mg PO DAILY 12/02/21 12/02/21 release Previous Rx's Medication Instructions Recorded famotidine 20 mg tablet (Pepcid) 20 mg PO BID #14 tab 09/26/20 Results & Data (ED) Vital Signs Vital Signs - 24 hr 12/02/21 13:36 12/02/21 15:43 12/02/21 15:54 Temperature 36.6 C Temperature Source Temporal Artery Scan Pulse Rate 115 H 68 Pulse Rate [Apical] 102 H Respiratory Rate 18 18 20 Respiratory Effort / Characteristics Non-Labored Spontaneous Non-Labored Respiratory Depth Normal Normal Respiratory Pattern Regular Blood Pressure 144/92 H Blood Pressure [Left Arm] 140/96 Blood Pressure Mean 109 Blood Pressure Mean [Left Arm] 110 Blood Pressure Position Sitting Pulse Oximetry 100 95 99 Oxygen Delivery Method Room Air Room Air Room Air Sepsis Recent Fever Within 48 Hours No Sepsis New/Unexplained Change in Mental Status No Sepsis Action Taken by Nursing No Action Required 12/02/21 16:09 12/02/21 17:48 Temperature Temperature Source Pulse Rate 106 H Pulse Rate [Apical] 77 Respiratory Rate 18 Respiratory Effort / Characteristics Non-Labored Spontaneous Respiratory Depth Normal Respiratory Pattern Blood Pressure 140/96 Blood Pressure [Left Arm] 131/86 Blood Pressure Mean Blood Pressure Mean [Left Arm] 101 Blood Pressure Position Pulse Oximetry 99 Oxygen Delivery Method Room Air Sepsis Recent Fever Within 48 Hours Sepsis New/Unexplained Change in Mental Status Sepsis Action Taken by [facility] Medications Current Medication List: was personally reviewed by me Laboratory Data Attestation: I reviewed the patient's lab results. Result diagrams: 12/02/21 14:06 12/02/21 14:06 Lab Results 12/02/21 12/02/21 12/02/21 Range/Units 14:06 14:06 14:06 WBC 9.07 (4.8-10.8) K/uL RBC 3.82 L (4.2-5.4) M/uL Hgb 12.9 (12.0-16.0) g/dL Hct 39.2 (37-47) % MCV 102.6 H (80-100) fL MCH 33.8 (25-34) pg MCHC 32.9 (32-36) g/dL RDW Std Deviation 55.7 H (36.4-46.3) fL RDW Coeff of Radha 14.8 H (11.5-14.5) % Plt Count 273 (130-400) K/uL MPV 10.2 (7.4-10.4) fL Immature Gran % (Auto) 0.2 % Neut % (Auto) 61.3 % Lymph % (Auto) 27.3 % Ellis % (Auto) 7.8 % Eos % (Auto) 3.2 % Baso % (Auto) 0.2 % Neut # (Auto) 5.55 (1.4-6.5) K/uL Lymph # (Auto) 2.48 (1.2-3.4) K/uL Ellis # (Auto) 0.71 H (0.11-0.59) K/uL Eos # (Auto) 0.29 (0-0.5) K/uL Baso # (Auto) 0.02 (0-0.2) K/uL Immature Gran # (Auto) 0.02 (0.00-0.02) K/uL PT 11.6 (9.0-12.0) Seconds INR 1.2 H (0.9-1.1) APTT 27.8 (21.0-31.0) Seconds PTT Ratio 1.1 Sodium 136 (136-145) mmol/L Potassium 3.8 (3.5-5.1) mmol/L Chloride 102 (98-107) mmol/L Carbon Dioxide 24 (21-32) mmol/L Anion Gap 10 (3-11) BUN 16 (6-23) mg/dl Creatinine 1.21 H (0.6-1.2) mg/dl Est Cr Clr Drug Dosing 48.4 ml/min Est GFR ( Amer) 51.4 ml/min Est GFR (Non-Af Amer) 44.4 ml/min BUN/Creatinine Ratio 13.2 (10-20) Glucose 91 (70-99(Fasting)) mg/dl Calcium 10.6 H (8.5-10.1) mg/dl Total Bilirubin 0.4 (0.2-1.0) mg/dl AST 18 (13-39) U/L ALT 11 (7-52) U/L Alkaline Phosphatase 107 H (34-104) U/L Total Creatine Kinase (26-192) U/L Troponin I 0.21 H* (0-0.04) ng/ml Total Protein 7.9 (6.0-8.3) gm/dl Albumin 4.3 (3.4-5.0) gm/dl Globulin 3.6 (2.5-4.0) gm/dl Albumin/Globulin Ratio 1.2 (0.9-2) TSH (0.300-4.500) uIu/ml SARS-CoV-2, RNA, NAAT (NEGATIVE) 12/02/21 12/02/21 12/02/21 Range/Units 14:06 14:06 16:02 WBC (4.8-10.8) K/uL RBC (4.2-5.4) M/uL Hgb (12.0-16.0) g/dL Hct (37-47) % MCV (80-100) fL MCH (25-34) pg MCHC (32-36) g/dL RDW Std Deviation (36.4-46.3) fL RDW Coeff of Radha (11.5-14.5) % Plt Count (130-400) K/uL MPV (7.4-10.4) fL Immature Gran % (Auto) % Neut % (Auto) % Lymph % (Auto) % Ellis % (Auto) % Eos % (Auto) % Baso % (Auto) % Neut # (Auto) (1.4-6.5) K/uL Lymph # (Auto) (1.2-3.4) K/uL Ellis # (Auto) (0.11-0.59) K/uL Eos # (Auto) (0-0.5) K/uL Baso # (Auto) (0-0.2) K/uL Immature Gran # (Auto) (0.00-0.02) K/uL PT (9.0-12.0) Seconds INR (0.9-1.1) APTT (21.0-31.0) Seconds PTT Ratio Sodium (136-145) mmol/L Potassium (3.5-5.1) mmol/L Chloride (98-107) mmol/L Carbon Dioxide (21-32) mmol/L Anion Gap (3-11) BUN (6-23) mg/dl Creatinine (0.6-1.2) mg/dl Est Cr Clr Drug Dosing ml/min Est GFR ( Amer) ml/min Est GFR (Non-Af Amer) ml/min BUN/Creatinine Ratio (10-20) Glucose (70-99(Fasting)) mg/dl Calcium (8.5-10.1) mg/dl Total Bilirubin (0.2-1.0) mg/dl AST (13-39) U/L ALT (7-52) U/L Alkaline Phosphatase (34-104) U/L Total Creatine Kinase 128 (26-192) U/L Troponin I (0-0.04) ng/ml Total Protein (6.0-8.3) gm/dl Albumin (3.4-5.0) gm/dl Globulin (2.5-4.0) gm/dl Albumin/Globulin Ratio (0.9-2) TSH 2.169 (0.300-4.500) uIu/ml SARS-CoV-2, RNA, NAAT NEGATIVE (NEGATIVE) Administered Medications Clopidogrel Bisulfate (Clopidogrel Bisulfate 75 Mg Tab) 75 mg PO QAM [facility] Stop: 01/01/22 20:25 Last Admin: 12/02/21 21:11 Dose: 75 mg Documented by: [id number] Famotidine (Famotidine 20 Mg Tab) 20 mg PO BID [facility] Stop: 01/01/22 20:59 Last Admin: 12/02/21 20:14 Dose: 20 mg Documented by: [id number] Heparin Sodium/Dextrose (Heparin Sodium/Dextrose) 25,000 units in 500 mls @ 27 mls/hr IV .[id number] [facility]; Protocol Stop: 01/01/22 18:14 Last Admin: 12/02/21 19:39 Dose: 1,350 units/hr, 27 mls/hr Documented by: [id number] Cosigned by: [id number] Sodium Chloride (Nss 1000ml) 1,000 mls @ 100 mls/hr IV .Q10H [facility] Stop: 12/03/21 14:09 Last Admin: 12/02/21 19:39 Dose: 100 mls/hr Documented by: [id number] Discontinued Medications Cetirizine HCl (Cetirizine Hcl 10 Mg Tablet) 10 mg PO NOW ONE Stop: 12/02/21 18:43 Last Admin: 12/02/21 20:15 Dose: 10 mg Documented by: [id number] Diphenhydramine HCl (Diphenhydramine 50 Mg/Ml Vial) 50 mg IV NOW STA Stop: 12/02/21 18:42 Last Admin: 12/02/21 20:16 Dose: 50 mg Documented by: [id number] Heparin Sodium/Dextrose (Heparin Iv Adult Wt-Based Standard *No* Bolus Protocol) 1 ea N/A NOW ; Protocol Stop: 12/02/21 17:59 Last Admin: 12/02/21 19:41 Dose: Not Given Documented by: [id number] Magnesium Sulfate/Dextrose (Magnesium Sulfate / D5w) 1 gm in 100 mls @ 50 mls/hr IV ONE ONE Stop: 12/02/21 18:11 Last Infusion: 12/02/21 19:01 Dose: 0 mls/hr Documented by: [id number] Admin: 12/02/21 16:30 Dose: 50 mls/hr Documented by: [id number] Magnesium Sulfate/Dextrose (Magnesium Sulfate / D5w) 1 gm in 100 mls @ 100 mls/hr IV NOW STA Stop: 12/02/21 18:07 Last Admin: 12/02/21 18:17 Dose: Not Given Documented by: [id number] Ioversol (Optiray 320 125ml) 110 ml IV ONCE ONE Stop: 12/02/21 20:35 Last Admin: 12/02/21 20:35 Dose: 110 ml Documented by: [id number] Methylprednisolone (Methylprednisolone 125 Mg/2 Ml Vial) 125 mg IV NOW ONE Stop: 12/02/21 20:01 Last Admin: 12/02/21 20:15 Dose: 125 mg Documented by: [id number] Metoprolol Tartrate (Metoprolol Tartrate 1 Mg/Ml Vial) 5 mg IV NOW STA Stop: 12/02/21 15:40 Last Admin: 12/02/21 16:09 Dose: 5 mg Documented by: [id number] Imaging Data Radiologist's Impression: Chest X-Ray 12/02/21 13:39 XR chest 2V PA/lateral CLINICAL HISTORY: Atypical chest pain. COMPARISON STUDY: No previous studies for comparison. FINDINGS: Lung volumes are normal. Lungs are clear. Right apical densities are unchanged and favor scarring. There is no pneumothorax or pleural effusion. Cardiac size is normal. Mediastinal contours are normal. There is no evidence for pulmonary edema. IMPRESSION: No acute cardiopulmonary findings. No change in appearance of the chest. ACT 112: Negative or not required by law. Electronically signed by: Abhi Young M.D. 12/02/2021 2:13 PM Discharge Plan Visit Data Chief Complaint: Referred by Doctor Stated Complaint: dr dobson labs for psbl heart attck, dr tucker ED Provider: Arsenio Thompson Discharge Problem: SOB (shortness of breath), Elevated troponin, Precordial chest pain, History of deep vein thrombosis Patient Disposition: Admitted As Inpatient Condition: Good Discharge Instructions Interventions: ED Discharge Assessment Last Done: 12/02/21 20:28
[2021-12-02] MEDS ORDERED: MAGNESIUM SULFATE / D5W 1 GM/100 ML BAG IV ONE (16:12)
[2021-12-02] MEDS ORDERED: MAGNESIUM SULFATE / D5W 1 GM/100 ML BAG IV STA (17:08)
[2021-12-02] MEDS ORDERED: Heparin IV Adult Wt-Based Standard *NO* Bolus Protocol STA (17:58)
[2021-12-02] MEDS ORDERED: HEPARIN SODIUM/DEXTROSE 25,000 UNITS/500 ML BAG IV SCH (18:15)
--- NOTE | 2021-12-02 18:34 | History & Physical Report ---
Date of Service December 02, 2021 Assessment & Plan (1) Atypical chest pain: Plan: 71-year-old white female with an underlying PMHx of HTN and prior DVT on ACT therapy presented with vague complaints that have waxed and waned over the past 6 weeks. Most recent episode was jaw pain that occurred approximately 3 days agosent here by PCP * Patient currently without symptoms * Troponin slightly elevated at 0.21. Uncertain if this is from a recent event that corresponded with the jaw pain that she experienced 3 days ago and it is downtrending? * In addition, patient does have an underlying history of an unprovoked DVT. In addition, her father and her son both have had DVTs/PEs. It is possible that she could have an underlying PE that could cause her vague symptoms and an elevated troponin. She is also tachycardic which could be from an underlying PE. She is not hypoxic or requiring supplemental oxygen. Ideally, would obtain a CTA of the chest but she has her severe reported allergy to contrast dye. I did investigate this deeper and she was seen by Dr. Waite the english composition instructor in April 2021 and deemed safe for isoosmolar contrast. I have a call out to our radiology department to help differentiate which type of contrast dye is utilized. In the interim, she will be placed on a heparin drip. If CTA positive for PE, will need to transition to Coumadin. It is possible that given his underlying family history she have an underlying hypercoagulable d yscrasia such as antiphospholipid syndrome for which DOAC's should not be utilized * If we are able to proceed with CTA, it is recommended per Dr. Waite that she be premedicated with Zyrtec 10 mg daily. Patient already on Pepcid for histamine blockade. Would avoid steroids in the setting of an elevated troponin (as should not be utilized in the setting of acute cardiac injury if that is the underlying cause of her positive troponin) * Will cycle out her troponin * Obtain an echocardiogram to assess LV function * Place patient on heparin drip * Patient claims that she is allergic to aspirin, metoprolol, and statins and refuses to take any of these. Is agreeable to Plavix. * Obtaining lipid panel in the a.m. for risk stratification * I have discussed this case with cardiology who agrees with obtaining the echocardiogram and ruling out for PE. If negative, ideally would pursue cardiac catheterization but again, patient has this reported allergy to contrast dye. May need cardiac evaluation based on those findings * (2) Elevated troponin: Plan: * Again, patient with jaw pain that occurred 3 days ago * Currently without symptoms but a slightly elevated troponin at 0.21 * Uncertain if the elevated troponin is secondary to a recent cardiac event versus underlying pulmonary embolismsee above as outlined * Also, uncertain where the elevated troponin is in regards to the timelinepossible that she had an event several days ago and it is downtrending * Based on results of CTA and echocardiogram, may need further cardiac work-up * Cardiology consultedappreciate recommendations * Again, patient reports an allergy to beta-blockade agents, aspirin, and refuses statin therapy (3) Sinus tachycardia: Plan: * Patient's current heart rate is 77. Presenting heart rate was 112 * Again, as outlined above I believe she needs ruled out for a pulmonary embolism as this may be contributing to some underlying tachycardia * Patient reports an allergy to metoprolol and declines anything to help with her heart rate as d/t severe bradycardia in the past (4) JULIANNE (acute kidney injury): Plan: * Troponin slightly elevated at 1.2 (was 0.7 10/02) * Given likely need for contrast for CTA and risk for further contrast nephropathy, will hydrate with IV fluids and continue to monitor labs (5) Hypertension: Plan: * Continue spironolactone as prior to hospitalization (6) Hypothyroid: Plan: * Continue Synthroid as prior to hospitalization Plan: Plan of care discussed with Dr. Govea and Dr. Zambrano History of Present Illness Chief Complaint: Atypical chest discomfort x 6 weeks Primary Care Provider: Jaki Escoto DO Mrs. Cochran is a 71-year-old white female with an underlying past medical history of hypertension, prior DVT on Eliquis, migraine cephalgia, postherpetic neuralgia, and vascular insufficiency with chronic edema. She presented to the ED at the recommendations of her PCP for work-up regarding atypical chest discomfort that has waxed and waned over the past 6 weeks. Patient is very vague in her symptomatology. Initial episode occurred approximately 6 weeks ago that awoke her from sleep. She reports a "burning sensation" in her arms, legs, chest wall that she described as an "electrical shock". The discomfort radiated into her jaw and she reports that her legs were "paralyzed". Symptoms lasted for approximately 1 hour before self alleviating. She did have associated shortness of breath at the time without nausea or diaphoresis. Since then, she has had 2-3 similar episodes that all occur while at rest. The subsequent episodes have not been as severe and have lasted for approximately 15 minutes. Most recently, she had an episode that was mostly jaw pain in the left side of her jaw that alleviated after taking her tramadol. No known aggravating factors. She does denote progressing shortness of breath over the past several weeks and that she typically was able to walk up and down the steps without difficulty but now seems to be slightly winded. Patient was seen by her PCP today who recommended she be evaluated in the emergency department. There she was found to be in a sinus tachycardia for which IV Lopressor was given. Current heart rate is 77. Otherwise she is hemodynamically stable and not hypoxic or requiring supplemental oxygen. Her troponin is slightly elevated at 0.21. She currently denies any complaints of chest pain, jaw pain, dizziness/lightheadedness, shortness of breath, rickie phoresis, nausea or vomiting. As reported above, her last "episode" was approximately 3 days ago. Her EKG shows no acute ST/T wave changes and her chest x-ray shows no acute cardiopulmonary process. COVID test is negative. She was subsequently hospitalized for further evaluation and care. She does not use tobacco products. Denies a family history of CAD. She does have an underlying history of hypertension but is not diabetic and does not have hyperlipidemia. Patient reports having an exercise stress test in the that was normal but otherwise has never had any other formal cardiac work-up. In further discussion regarding her DVT, it was an isolated event but unprovoked for which she remains on chronic anticoagulation therapy. Her father of a pulmonary embolism and her son also has a history of pulmonary embolism and that he "needs to take Coumadin". Patient reports that she has had a full clotting work-up in the past that was "normal" through [facility]. Allergies Allergy/AdvReac Type Severity Reaction Status Date / Time Iodinated Contrast Media Allergy Severe PASSING OUT Verified 12/02/21 16:41 bacitracin Allergy Intermediate REDNESS, Verified 12/02/21 16:41 RASH, "MAKES IT WORSE" latex Allergy Intermediate SKIN Verified 12/02/21 16:41 IRRITATION, ITCHY mold Allergy Intermediate CONGESTION Verified 12/02/21 16:41 neomycin Allergy Intermediate REDNESS, Verified 12/02/21 16:41 RASH, "MAKES IT WORSE" polymyxin B Allergy Intermediate REDNESS, Verified 12/02/21 16:41 RASH, "MAKES IT WORSE" aspirin Allergy Unknown STAYS AWAY Verified 12/02/21 16:41 FROM SINCE ON BLOOD THINNERS clarithromycin Allergy Unknown Unknown Verified 12/02/21 16:41 codeine Allergy Unknown Unknown Verified 12/02/21 16:41 diphtheria toxoid,fluid Allergy Unknown Unknown Verified 12/02/21 16:41 iron Allergy Unknown PER PT'S Verified 12/02/21 16:42 SON morphine Allergy Unknown Unknown Verified 12/02/21 16:42 prednisone Allergy Unknown Unknown Verified 12/02/21 16:42 Fish Containing Products Allergy Unknown Verified 12/02/21 16:42 fish derived Allergy Unknown Verified 12/02/21 16:42 fish oil Allergy Unknown Verified 12/02/21 16:42 shellfish derived Allergy Unknown Verified 12/02/21 16:41 grapefruit AdvReac Unknown Verified 12/02/21 16:41 orange juice AdvReac Unknown Verified 12/02/21 16:41 SEAFOOD Allergy Severe VOMITING Uncoded 09/24/20 01:19 Home Medications Medication Instructions Recorded Confirmed Type twwudnuqqc-[id number]-[id number] 1 tab PO Q6H PRN tab 09/04/19 12/02/21 History 50 mg-325 mg-40 mg tablet spironolactone 25 mg tablet 25 mg PO DAILY tab 09/04/19 12/02/21 History tramadol 50 mg tablet 50 - 100 mg PO Q6H PRN tab MDD 09/04/19 12/02/21 History 400 MG/DAY levothyroxine 50 mcg tablet 50 mcg PO QAM 03/17/20 12/02/21 History (Synthroid) lidocaine 5 % topical ointment 1 applic TOPICAL DIRECTED PRN 03/17/20 12/02/21 History apixaban 5 mg tablet (Eliquis) 5 mg PO BID 04/14/20 12/02/21 History cholecalciferol (vitamin D3) 50 2,000 unit PO DAILY 09/24/20 12/02/21 History mcg (2,000 unit) tablet clobetasol 0.05 % topical ointment 1 applic TOPICAL DIRECTED PRN 09/24/20 12/02/21 History mupirocin 2 % topical ointment 1 applic TOPICAL DIRECTED PRN 09/24/20 12/02/21 History peg 400-propylene glycol 0.4 %-0.3 2 drp OPHTHALMIC (EYE) DIRECTED 09/24/20 12/02/21 History % eye drops (Systane Ultra) PRN triamcinolone acetonide 0.1 % 1 applic TOPICAL DIRECTED PRN 09/24/20 12/02/21 History topical ointment famotidine 20 mg tablet (Pepcid) 20 mg PO BID #14 tab 09/26/20 12/02/21 Rx Nasal Decongestant Tabs 2 tabs PO BID 12/02/21 12/02/21 History Robitussin Cough Gel 1 dose PO DIRECTED 12/02/21 12/02/21 History benzonatate 200 mg capsule 200 mg PO TID PRN 12/02/21 12/02/21 History calcium carbonate 300 mg (750 mg) 600 mg PO BID PRN 12/02/21 12/02/21 History chewable tablet (Tums) diphenhydramine HCl 25 mg capsule 50 mg PO BID 12/02/21 12/02/21 History (Benadryl) ibuprofen 125 mg-acetaminophen 250 2 tab PO Q6 PRN 12/02/21 12/02/21 History mg tablet (Advil Dual Action) nystatin 100,000 unit/gram topical 1 applic TOPICAL DIRECTED 12/02/21 12/02/21 History powder pantoprazole 40 mg tablet,delayed 40 mg PO DAILY 12/02/21 12/02/21 History release Past Med/Surg History Medical History Abdominal pain Acidosis, lactic Acute GI bleeding JULIANNE (acute kidney injury) Colitis DVT (deep venous thrombosis) Hypertension Hypothyroid Leukocytosis Migraine Post herpetic neuralgia Surgical History History of cataract surgery History of cholecystectomy History of hysterectomy History of oophorectomy, unilateral History of tooth extraction S/P knee replacement Status post tubal ligation Family History Son Asthma Diabetes Hypertension Pulmonary embolism Sinusitis Mother Diabetes Pulmonary embolism Father Pulmonary embolism Denies family history of Ovarian cancer Breast cancer Colorectal cancer Uterus cancer Social History Smoking Status: Never smoker Hx Alcohol Use: No Hx Substance Use: No Preferred Language: Syriac Communication Ability: Effective Real Estate Administrator Required: No Beliefs That Will Affect Care: None marital status: Current Living Situation: Family How many Children do You have: 2 Other Information That Helps Us Care for You: No Feels Safe at Home: Yes Assistive Devices: Cane, Denture - Upper, Denture - Lower and Glasses Review of Systems Review of Systems: All systems reviewed and are unremarkable except as noted in HPI and below Denies fevers, chills, headache, nasal congestion, sore throat, cough, shortness of breath, palpitations, orthopnea, PND, abdominal pain, nausea, vomiting, diarrhea, constipation, dysuria, hematuria, frequency, back pain, joint pain or swelling, easy bruising or bleeding, skin lesions or rashes. Physical Exam Physical Exam: General: Resting comfortably in her hospital bed. Appears very anxious but in no acute distress NAD. HEENT: Head is AT/NC buccal mucosa is moist and pink Neck: No JVD. Negative hepatojugular reflex Cardiac: RRR with 2/6 SARA Lungs: CTA without W/R/R Abdomen: Normoactive X4. Soft and nontender in all quadrants. Extremities: No peripheral clubbing cyanosis or edema. Negative Homans' sign. No calf tenderness. Neuro: A&O X4 cranial nerves II through XII are grossly intact no focal neuro deficits Skin: No obvious skin lesions or rashes Psych: Appropriate affect pleasant and cooperative Results & Data Results & Data ([facility]) Vital Signs (Past 12 Hours) Vital Signs Temp Pulse Pulse Resp BP BP Pulse Ox 12/02/21 17:48 77 18 131/86 99 12/02/21 16:09 106 H 140/96 12/02/21 15:54 102 H 20 140/96 99 12/02/21 15:43 68 18 95 12/02/21 13:36 36.6 C 115 H 18 144/92 H 100 Laboratory Results 12/02/21 14:06 12/02/21 14:06 total bilirubin: 0.40 AST: 18 ALT: 11 troponin: 0.21 TSH: 2.169 COVID PCR: Negative Diagnostic Findings EKG: Sinus with rate of 106. normal axis. nonspecific but nonacute ST-T wave changes CXR: No acute cardiopulmonary process Code Status & VTE Plan VTE Prophylaxis Plan VTE Prophylaxis will be ordered: Yes Supervising Physician Co-Signing Physician Notes I personally saw and examined the patient. I verified all owens points and agree with Juany Gloria PA-C with the following exceptions and/or additions: 71 year old female with atypical chest pain and elevated troponin. Currently chest pain free when seen and last chest pain 2 days ago. O/E no acute distress, HS RRR, no murmurs, Chest CTAB, no pedal edema, radial pulses equal. Alter and orientated. Tangential speech. A/P Atypical chest pain - CT for PE, no acute PE but prior chronic, concern for ACS with elevated troponin, agree with switching Eliquis to heparin standard dosing and consulting cardiology to see tomorrow. PG Care Time/CCT Total # of Minutes Spent Total Time Spent with Patient: Total time spent is greater than 50% in coordination of care (as documented) at patient's floor/unit and/or counseling patient: Coding Level of Care Code INT OBSERVATION CARE 70M LVL 3 Diagnoses Atypical chest pain R07.89 Sinus tachycardia R00.0 Elevated troponin R77.8 JULIANNE (acute kidney injury) N17.9 Hypertension I10 Hypothyroid E03.9
[2021-12-02] MEDS ORDERED: diphenhydrAMINE 50 MG/ML VIAL IV STA (18:41)
[2021-12-02] MEDS ORDERED: methylPREDNISolone 1,000 MG in DEXTROSE 5% 250 ML IV ONE (18:41)
[2021-12-02] MEDS ORDERED: CETIRIZINE HCL 10 MG TABLET PO ONE (18:42)
[2021-12-02] MEDS: SODIUM CHLORIDE 0.9% 1000ML 1,000 ML IV SCH (19:39)
[2021-12-02] MEDS ORDERED: methylPREDNISolone 125 MG/2 ML VIAL IV ONE (20:00)
[2021-12-02] MEDS: FAMOTIDINE 20 MG TAB PO SCH (20:14)
[2021-12-02] MEDS ORDERED: ALUMINUM/MAGNESIUM SUSP 30 ML UDC PO PRN (20:26)
[2021-12-02] MEDS ORDERED: NITROGLYCERIN SL 0.4 MG/TAB TAB SL PRN (20:26)
[2021-12-02] MEDS ORDERED: MAGNESIUM HYDROXIDE SUSP 30 ML UDC PO PRN (20:26)
[2021-12-02] MEDS ORDERED: ONDANSETRON INJ 2 MG/ML 2 ML VIAL IV PRN (20:26)
[2021-12-02] MEDS ORDERED: OPTIRAY 320 125ml IV ONE (20:34)
--- NOTE | 2021-12-02 21:00 | CT Scan Report ---
CT ANGIOGRAM OF THE CHEST CLINICAL HISTORY: Atypical chest pain. COMPARISON STUDY: Chest x-ray dated 12/02/2021. Chest CT dated 04/09/2020. TECHNIQUE: Following the IV administration of 110 cc of Optiray 320, CT angiogram of the chest was pe rformed from the upper abdomen to the thoracic inlet utilizing the pulmonary embolus protocol. Images are reviewed in the axial, sagittal, and coronal planes. 3-D MIPS images are created and assessed. I V contrast was administered without complication. A dose lowering technique was utilized adhering to the principles of ALARA. CT DOSE: 352.68 mGy.cm FINDINGS: Thyroid: Imaged portions of the thyroid gland are normal in size and attenuation. Thoracic aorta: There is atherosclerotic calcification of the thoracic aorta comment with is normal i n caliber and demonstrates standard 3-vessel arch anatomy. The aorta is not well opacified. Pulmonary vasculature: The pulmonary trunk is normal in caliber. There are thin linear filling defect s seen within the right lower lobe pulmonary artery as well as within the left lower lobe pulmonary a rteries consistent with trace chronic pulmonary embolus. There are no filling defects typical for acu te pulmonary emboli seen within the main, lobar, or segmental pulmonary branches. Heart: The heart is mildly enlarged and without pericardial effusion. The coronary arteries are dense ly calcified. Lungs and pleural spaces: Evaluation of the lung parenchyma is modestly degraded by motion artifact. There is no airspace consolidation or pleural effusion. The trachea and central airways appear clear. Diffuse peribronchial thickening is observed. Mild scarring/atelectasis is present at both lung base s. A 3 mm left lower lobe pulmonary nodule on image #90 and a 2 mm right middle lobe pulmonary nodule on image #107 are unchanged. There are punctate calcified granulomas. Mediastinum: There is no mediastinal lymphadenopathy. Stacie: Clear. Axillae: There is no axillary lymphadenopathy. Upper abdomen: There is a tiny hiatal hernia. Partially visualized upper abdominal viscera is otherwi se within normal limits. Skeletal structures: The skeletal structures are osteopenic. Degenerative change and hyperkyphosis is noted in the thoracic spine. There is a minimal chronic superior endplate compression deformity of T 4. No lytic or blastic bony lesions are seen. IMPRESSION: 1. There is no evidence of acute pulmonary embolus in the main, lobar, or segmental pulmonary arterie s. 2. Thin linear filling defects within branches of the right and left lower lobe pulmonary arteries ar e consistent with trace chronic pulmonary emboli. 3. There is no airspace consolidation or pleural effusion. 4. Cardiomegaly. 5. Diffuse peribronchial thickening suggests bronchitis/reactive airway disease. Clinical correlation will be required. ACT 112: Negative or not required by law. Electronically signed by: Arsenio Sena M.D. 12/02/2021 8:58 PM
[2021-12-02] MEDS: CLOPIDOGREL BISULFATE 75 MG TAB PO SCH (21:11)
[2021-12-03 01:42] LABS: Basophils # (auto) 0.01 K/uL (0-0.2); Basophils % (auto) 0.1 %; Hematocrit (blood only) 36.3 % (37-47); Immature Granulocytes # (auto) 0.02 K/uL (0.00-0.02); Immature Granulocytes % (auto) 0.2 %; Lymphocytes # (auto) 0.71 K/uL (1.2-3.4); Lymphocytes % (auto) 7.4 %; Mean Corpuscular Hemoglobin 33.4 pg (25-34); Mean Corpuscular Hgb Conc 33.1 g/dL (32-36); Mean Corpuscular Volume 101.1 fL (80-100); Monocytes # (auto) 0.07 K/uL (0.11-0.59); Monocytes % (auto) 0.7 %; Neutrophils # (auto) 8.83 K/uL (1.4-6.5); Neutrophils % (auto) 91.6 %; Platelet Count 219 K/uL (130-400); RDW Coefficient of Variation 14.5 % (11.5-14.5); RDW Standard Deviation 53.3 fL (36.4-46.3); Red Blood Count 3.59 M/uL (4.2-5.4); White Blood Count 9.64 K/uL (4.8-10.8)
[2021-12-03 02:01] LABS: Albumin Globulin Ratio 1.2 (0.9-2); Albumin Level 3.8 gm/dl (3.4-5.0); BUN Creatinine Ratio 13.3 (10-20); Bilirubin,Total 0.5 mg/dl (0.2-1.0); Calcium 9.7 mg/dl (8.5-10.1); Chol HDL Ratio 3.9 (0-5); Creatinine Clr Calc Pharmacy 55.7 ml/min; Est GFR (Non-African American) 52.6 ml/min; Globulin 3.1 gm/dl (2.5-4.0); Magnesium 1.4 mg/dl (1.7-2.4); Potassium 4.2 mmol/L (3.5-5.1); Total Protein 6.9 gm/dl (6.0-8.3)
[2021-12-03 02:10] LABS: Partial Thromboplastin Time 52.3 Seconds (21.0-31.0)
[2021-12-03 02:19] LABS: Troponin I 0.14 ng/ml (0-0.04)
[2021-12-03] MEDS: SODIUM CHLORIDE 0.9% 1000ML 1,000 ML IV SCH (05:19)
[2021-12-03] MEDS: ACETAMINOPHEN 325 MG TAB PO PRN ×2 (05:36→09:44)
--- NOTE | 2021-12-03 07:00 | Electrocardiogram Report ---
Test Reason : Blood Pressure : / mmHG Vent. Rate : 106 BPM Atrial Rate : 106 BPM P-R Int : 196 ms QRS Dur : 092 ms QT Int : 340 ms P-R-T Axes : 071 016 104 degrees QTc Int : 451 ms Sinus tachycardia with Premature atrial complexes Possible Inferior infarct Nonspecific T wave abnormality Abnormal ECG When compared with ECG of 23-SEP-2020 23:22, Premature atrial complexes are now Present Nonspecific T wave abnormality, worse in Inferior leads Nonspecific T wave abnormality now evident in Lateral leads Confirmed by Hector Zambrano ([id number]) on 12/03/2021 7:00:06 AM Referred By: Confirmed By:Hector Zambrano
[2021-12-03] MEDS: FAMOTIDINE 20 MG TAB PO SCH (08:04)
[2021-12-03] MEDS: CLOPIDOGREL BISULFATE 75 MG TAB PO SCH (08:04)
[2021-12-03 08:13] LABS: Partial Thromboplastin Ratio 2.6
[2021-12-03 08:22] LABS: Partial Thromboplastin Time 67.3 Seconds (21.0-31.0)
[2021-12-03] MEDS ORDERED: LEVOTHYROXINE SODIUM 50 MCG TABLET PO SCH (09:00)
[2021-12-03] MEDS ORDERED: SPIRONOLACTONE 25 MG TAB PO SCH (09:00)
[2021-12-03] MEDS ORDERED: PANTOprazole 40 MG TAB PO SCH (09:00)
--- NOTE | 2021-12-03 09:12 | XCELERA ---
[id number]
--- NOTE | 2021-12-03 11:12 | Cardiology Consultation ---
Date of Consultation December 03, 2021 Assessment & Plan (1) Non-ST elevation (NSTEMI) myocardial infarction: (2) CAD (coronary artery disease): (3) Ischemic cardiomyopathy: (4) SOB (shortness of breath): (5) Hypertension: (6) Angina pectoris: (7) Dyslipidemia: (8) Sinus tachycardia: ASSESSMENT/PLAN: 1. NSTEMI: Presumably had an IL approximately 7 weeks ago based on her description with troponin levels that are trending downward, abnormal ECG, and abnormal echo suggesting previous IL. Discussed findings. Given stuttering symptoms since then, worsened dyspnea with exertion, and densely calcified coronary arteries on CT, recommended cardiac catheterization to evaluate figueredo ry arteries. Risks and benefits were discussed with her in detail. She declined for now. She would like to go home and think about things. There is no urgent indication. Her symptoms overall have improved other than the dyspnea. She was reminded however that she is at risk for myocardial infarction, which can be fatal. She expressed understanding and continued to wish for conservative management. We discussed medical therapies. She is willing to try 1 new medication at a time. She was agreeable for beta-kalen therapy. She presumably took propanolol in the past. Start metoprolol s uccinate 25 mg once daily. She was already started on Plavix by primary hospitalist service. Would recommend evaluation by allergy to see if she is truly allergic to aspirin. Recommend high-intensity statin therapy when she is agreeable (she reportedly declined statin therapy when recommended by hospitalist service). She reports relative low blood pressure for her on DEMARCUS- inhibitor in the past but would recommend DEMARCUS-inhibitor trial again if she is agreeable at some point. No angina within the past several days. 2. CAD: Presuming that she has CAD based on densely calcified coronary arteries on CT scan, elevated troponins with event approximately 7 weeks ago reminiscent of myocardial infarction, and abnormal echo with wall motion abnormalities. Would recommend aspirin 81 mg daily, high-intensity statin therapy, beta- kalen, DEMARCUS-inhibitor. Given her history of intolerances, she has declined aspirin and statin therapy. She is agreeable for low-dose beta-kalen for now. She does not wish to start any other medications at this time. 3. Ischemic cardiomyopathy: Wall motion abnormalities as described. She appears euvolemic. Metoprolol succinate. DEMARCUS-inhibitor if agreeable in the future. Cardiac catheterization recommended but declined. She does not qualify for ICD for primary prevention at this point. 4. Angina: She has had symptoms concerning for angina since her more significant event several weeks ago. Fortunately, she has not had any anginal symptoms for approximately 1 week and believes that overall symptoms have improved over time. Plan as above. 911 for recurrent symptoms and she was agreeable to this. 5. Shortness of breath: She appears euvolemic. Dyspnea with exertion could be due to ischemic heart disease. Cardiac catheterization was recommended as above but declined. She also has abnormal CT imaging such as chronic PE she and peribronchial thickening suggesting bronchitis or reactive airway disease. 6. Sinus tachycardia: Likely physiologic response for reduced LV systolic function. Should improve with time. 7. Hypertension: Blood pressure acceptable. Plan as above. 8. Dyslipidemia: LDL not at goal for presumed CAD. Recommend high-intensity statin therapy. Will continue discuss this as an outpatient if she is agreeable. 9. Disposition: She would like to go home. She has not had an acute event here and based on her description has not had any anginal symptoms for at least 1 week. She would like to follow-up in the office. Follow-up with me in 1 week. Consider cardiac rehab. Plan of care discussed with Hilaria Gloria of the primary hospitalist service. Highly complex medical issues. Thank you for allowing me to participate in the care of your patient. Please call for any other questions or concerns. Sincerely, Bennie Zambrano M.D. History of Present Illness Reason for Consultation: Chest pain and abnormal Troponin level Requesting Physician: Randall Singer MD Attending Physician: Randall Singer MD History of Present Illness Ms. Cochran is a pleasant 71-year-old female with a history significant for hypertension, previous DVT on indefinite anticoagulation therapy, venous insufficiency, and several medication allergy/intolerances. She was admitted on 12/02/2021 with minimally elevated troponins. Approximately 7 weeks prior to presentation, she was awakened in the middle of the night with left-sided jaw pain described as an ache that radiated into the neck, bilateral shoulders, arms, chest and back. She was short of breath at the beginning of the episode but not diaphoretic. It felt as though there were lightening bolts in her bones. She took tramadol and the pain eventually subsided in approximately 1 hour. The same symptoms recurred approximately 5 days later but were less severe and subsided quicker. She believes that episode lasted 15-20 minutes. She once again took tramadol. Since then she has had 2 or 3 more episodes but admits that the duration and severity of each episode has dwindled. Her last episode was approximately 1 week ago. She has been experiencing dyspnea with exertion while climbing stairs which has been chronic but worsened recently. She described these symptoms to her PCP who did an ECG and recommended emergency department evaluation. She states that she has been mostly sedentary for 3 years. She had a sinus in [facility] and remained in bed and then the pandemic occurred and she mostly remained home. She developed a left lower extremity DVT in November of 2019. She has been on anticoagulation therapy since. She describes having hives or other allergic reactions to several medications. She has been tested in the allergy department and was found to not have an allergy to iso-osmolar IV contrast. She received such diet last evening for CTA and stated that she broke out in hives but then mention that the hives were there prior to the contrast administration. She uses antifungal cream on her allergic hives which typically resolves them. She states that in the past she used a beta-kalen once for migraine headaches and that with the beta-kalen she felt like things went dark. A co-worker noted that she looked wyatt and was not responding. She took aspirin more frequently than indicated in the past and was told not to take aspirin anymore. She then stated that she also developed hives. She denies any current symptoms such as chest pain or shortness of breath. She denies orthopnea, syncope, near-syncope, palpitations, or bleeding such as melena, hematochezia, or hematuria. She has chronic but stable lower extremity edema and in fact believes that her edema is better than usual. She denies orthopnea. She admits that if she walks 10 minutes or so, she feels worn out for approximat tamara 1 hour. Review of systems: As above. Review of systems otherwise negative/unremarkable. Family history: Father had a leg injury and refuse treatment for weeks. He then developed sudden cardiac which was thought to be due to PE but there was no autopsy to confirm such. Social history: She denies tobacco, alcohol, or drug abuse. She lives at home with her 2 sons. She had another son who after being struck by a drunk hack driver. She is . Her son, Gurpreet, accompanied her in her room. Allergies Allergy/AdvReac Type Severity Reaction Status Date / Time Iodinated Contrast Media Allergy Severe PASSING OUT Verified 12/02/21 16:41 bacitracin Allergy Intermediate REDNESS, Verified 12/02/21 16:41 RASH, "MAKES IT WORSE" latex Allergy Intermediate SKIN Verified 12/02/21 16:41 IRRITATION, ITCHY mold Allergy Intermediate CONGESTION Verified 12/02/21 16:41 neomycin Allergy Intermediate REDNESS, Verified 12/02/21 16:41 RASH, "MAKES IT WORSE" polymyxin B Allergy Intermediate REDNESS, Verified 12/02/21 16:41 RASH, "MAKES IT WORSE" aspirin Allergy Unknown STAYS AWAY Verified 12/02/21 16:41 FROM SINCE ON BLOOD THINNERS clarithromycin Allergy Unknown Unknown Verified 12/02/21 16:41 codeine Allergy Unknown Unknown Verified 12/02/21 16:41 diphtheria toxoid,fluid Allergy Unknown Unknown Verified 12/02/21 16:41 iron Allergy Unknown PER PT'S Verified 12/02/21 16:42 SON morphine Allergy Unknown Unknown Verified 12/02/21 16:42 prednisone Allergy Unknown Unknown Verified 12/02/21 16:42 Fish Containing Products Allergy Unknown Verified 12/02/21 16:42 fish derived Allergy Unknown Verified 12/02/21 16:42 fish oil Allergy Unknown Verified 12/02/21 16:42 shellfish derived Allergy Unknown Verified 12/02/21 16:41 grapefruit AdvReac Unknown Verified 12/02/21 16:41 orange juice AdvReac Unknown Verified 12/02/21 16:41 SEAFOOD Allergy Severe VOMITING Uncoded 09/24/20 01:19 Home Medications Medication Instructions Recorded Confirmed Type [id number] 1 tab PO Q6H PRN tab 09/04/19 12/02/21 History 50 mg-325 mg-40 mg tablet spironolactone 25 mg tablet 25 mg PO DAILY tab 09/04/19 12/02/21 History tramadol 50 mg tablet 50 - 100 mg PO Q6H PRN tab MDD 09/04/19 12/02/21 History 400 MG/DAY levothyroxine 50 mcg tablet 50 mcg PO QAM 03/17/20 12/02/21 History (Synthroid) lidocaine 5 % topical ointment 1 applic TOPICAL DIRECTED PRN 03/17/20 12/02/21 History apixaban 5 mg tablet (Eliquis) 5 mg PO BID 04/14/20 12/02/21 History cholecalciferol (vitamin D3) 50 2,000 unit PO DAILY 09/24/20 12/02/21 History mcg (2,000 unit) tablet clobetasol 0.05 % topical ointment 1 applic TOPICAL DIRECTED PRN 09/24/20 12/02/21 History mupirocin 2 % topical ointment 1 applic TOPICAL DIRECTED PRN 09/24/20 12/02/21 History peg 400-propylene glycol 0.4 %-0.3 2 drp OPHTHALMIC (EYE) DIRECTED 09/24/20 12/02/21 History % eye drops (Systane Ultra) PRN triamcinolone acetonide 0.1 % 1 applic TOPICAL DIRECTED PRN 09/24/20 12/02/21 History topical ointment famotidine 20 mg tablet (Pepcid) 20 mg PO BID #14 tab 09/26/20 12/02/21 Rx Nasal Decongestant Tabs 2 tabs PO BID 12/02/21 12/02/21 History Robitussin Cough Gel 1 dose PO DIRECTED 12/02/21 12/02/21 History benzonatate 200 mg capsule 200 mg PO TID PRN 12/02/21 12/02/21 History calcium carbonate 300 mg (750 mg) 600 mg PO BID PRN 12/02/21 12/02/21 History chewable tablet (Tums) diphenhydramine HCl 25 mg capsule 50 mg PO BID 12/02/21 12/02/21 History (Benadryl) ibuprofen 125 mg-acetaminophen 250 2 tab PO Q6 PRN 12/02/21 12/02/21 History mg tablet (Advil Dual Action) nystatin 100,000 unit/gram topical 1 applic TOPICAL DIRECTED 12/02/21 12/02/21 History powder pantoprazole 40 mg tablet,delayed 40 mg PO DAILY 12/02/21 12/02/21 History release clopidogrel 75 mg tablet 75 mg PO QAM #30 tab 12/03/21 Rx enoxaparin 100 mg/mL subcutaneous 90 mg SUBCUT Q12H #10 ml 12/03/21 Rx syringe (Lovenox) magnesium oxide 400 mg PO DAILY #14 tab 12/03/21 Rx metoprolol tartrate 25 mg tablet 25 mg PO BID #60 tab 12/03/21 Rx warfarin 7.5 mg tablet 7.5 mg PO DAILY #30 tab 12/03/21 Rx Patient History Medical History (Updated 12/03/21 @ 13:28 by Hector Zambrano MD) Abdominal pain Acidosis, lactic Acute GI bleeding JULIANNE (acute kidney injury) Colitis DVT (deep venous thrombosis) Hypertension Hypothyroid Ischemic cardiomyopathy Leukocytosis Migraine Post herpetic neuralgia Surgical History History of cataract surgery History of cholecystectomy History of hysterectomy History of oophorectomy, unilateral History of tooth extraction S/P knee replacement Status post tubal ligation Family History Son Asthma Diabetes Hypertension Pulmonary embolism Sinusitis Mother Diabetes Pulmonary embolism Father Pulmonary embolism Denies family history of Ovarian cancer Breast cancer Colorectal cancer Uterus cancer Social History Smoking Status: Never smoker Hx Alcohol Use: No Hx Substance Use: No Preferred Language: Malian Communication Ability: Effective Gas Torch Solderer Required: No Beliefs That Will Affect Care: None marital status: Current Living Situation: Family How many Children do You have: 2 Feels Safe at Home: Yes Assistive Devices: Cane, Denture - Upper, Denture - Lower and Glasses Physical Exam Physical Exam: Gen.: No acute distress. Alert and oriented. HEENT: Anicteric sclera. Neck: No JVD. No bruits. Normal carotid upstrokes bilaterally. Cardiac: PMI was nondisplaced. No ventricular heave. Regular near 100 beats per minute a Normal S1-S2. No murmurs, rubs, or gallops. Pulmonary: Clear to auscultation bilaterally without wheezes, rales, or rhonchi. Abdomen: Soft, nontender, nondistended, with normoactive bowel sounds. No bruits noted. Extremities: 2+ radial pulses bilaterally. 2+ posterior tibialis pulses bilaterally. Trace bilateral lower extremity edema. No cyanosis. Psychiatric: Affect appears appropriate. Results & Data ([facility]) Vital Signs (Past 12 Hours) Vital Signs Temp Pulse Pulse Resp BP Pulse Ox 12/03/21 07:38 96 H 12/03/21 07:14 36.4 C L 96 H 20 122/74 100 12/02/21 23:23 99 H 100 Laboratory Results Laboratory Results - last 24 hr 12/02/21 12/02/21 12/02/21 14:06 14:06 14:06 WBC 9.07 RBC 3.82 L Hgb 12.9 Hct 39.2 MCV 102.6 H MCH 33.8 MCHC 32.9 RDW Std Deviation 55.7 H RDW Coeff of Radha 14.8 H Plt Count 273 MPV 10.2 Immature Gran % (Auto) 0.2 Neut % (Auto) 61.3 Lymph % (Auto) 27.3 Buchanan % (Auto) 7.8 Eos % (Auto) 3.2 Baso % (Auto) 0.2 Neut # (Auto) 5.55 Lymph # (Auto) 2.48 Buchanan # (Auto) 0.71 H Eos # (Auto) 0.29 Baso # (Auto) 0.02 Immature Gran # (Auto) 0.02 PT 11.6 INR 1.2 H APTT 27.8 PTT Ratio 1.1 Sodium 136 Potassium 3.8 Chloride 102 Carbon Dioxide 24 Anion Gap 10 BUN 16 Creatinine 1.21 H Est Cr Clr Drug Dosing 48.4 Est GFR ( Amer) 51.4 Est GFR (Non-Af Amer) 44.4 BUN/Creatinine Ratio 13.2 Glucose 91 Calcium 10.6 H Magnesium Total Bilirubin 0.4 AST 18 ALT 11 Alkaline Phosphatase 107 H Total Creatine Kinase Troponin I 0.21 H* Total Protein 7.9 Albumin 4.3 Globulin 3.6 Albumin/Globulin Ratio 1.2 Triglycerides Cholesterol LDL Cholesterol, Calc VLDL Cholesterol, Calc HDL Cholesterol Cholesterol/HDL Ratio TSH SARS-CoV-2, RNA, NAAT 12/02/21 12/02/21 12/02/21 14:06 14:06 16:02 WBC RBC Hgb Hct MCV MCH MCHC RDW Std Deviation RDW Coeff of Radha Plt Count MPV Immature Gran % (Auto) Neut % (Auto) Lymph % (Auto) Buchanan % (Auto) Eos % (Auto) Baso % (Auto) Neut # (Auto) Lymph # (Auto) Buchanan # (Auto) Eos # (Auto) Baso # (Auto) Immature Gran # (Auto) PT INR APTT PTT Ratio Sodium Potassium Chloride Carbon Dioxide Anion Gap BUN Creatinine Est Cr Clr Drug Dosing Est GFR ( Amer) Est GFR (Non-Af Amer) BUN/Creatinine Ratio Glucose Calcium Magnesium Total Bilirubin AST ALT Alkaline Phosphatase Total Creatine Kinase 128 Troponin I Total Protein Albumin Globulin Albumin/Globulin Ratio Triglycerides Cholesterol LDL Cholesterol, Calc VLDL Cholesterol, Calc HDL Cholesterol Cholesterol/HDL Ratio TSH 2.169 SARS-CoV-2, RNA, NAAT NEGATIVE 12/02/21 12/02/21 12/03/21 20:57 Unknown 01:30 WBC RBC Hgb Hct MCV MCH MCHC RDW Std Deviation RDW Coeff of Radha Plt Count MPV Immature Gran % (Auto) Neut % (Auto) Lymph % (Auto) Buchanan % (Auto) Eos % (Auto) Baso % (Auto) Neut # (Auto) Lymph # (Auto) Buchanan # (Auto) Eos # (Auto) Baso # (Auto) Immature Gran # (Auto) PT INR APTT 52.3 H* PTT Ratio 2.0 Sodium Potassium Chloride Carbon Dioxide Anion Gap BUN Creatinine Est Cr Clr Drug Dosing Est GFR ( Amer) Est GFR (Non-Af Amer) BUN/Creatinine Ratio Glucose Calcium Magnesium 1.4 L Total Bilirubin AST ALT Alkaline Phosphatase Total Creatine Kinase Troponin I 0.18 H* Total Protein Albumin Globulin Albumin/Globulin Ratio Triglycerides Cholesterol LDL Cholesterol, Calc VLDL Cholesterol, Calc HDL Cholesterol Cholesterol/HDL Ratio TSH SARS-CoV-2, RNA, NAAT 12/03/21 12/03/21 12/03/21 01:30 01:30 07:28 WBC 9.64 RBC 3.59 L Hgb 12.0 Hct 36.3 L MCV 101.1 H MCH 33.4 MCHC 33.1 RDW Std Deviation 53.3 H RDW Coeff of Radha 14.5 Plt Count 219 MPV 10.0 Immature Gran % (Auto) 0.2 Neut % (Auto) 91.6 Lymph % (Auto) 7.4 Buchanan % (Auto) 0.7 Eos % (Auto) 0.0 Baso % (Auto) 0.1 Neut # (Auto) 8.83 H Lymph # (Auto) 0.71 L Buchanan # (Auto) 0.07 L Eos # (Auto) 0.00 Baso # (Auto) 0.01 Immature Gran # (Auto) 0.02 PT INR APTT 67.3 H* PTT Ratio 2.6 Sodium 135 L Potassium 4.2 Chloride 104 Carbon Dioxide 23 Anion Gap 8 BUN 14 Creatinine 1.05 Est Cr Clr Drug Dosing 55.7 Est GFR ( Amer) 61.0 Est GFR (Non-Af Amer) 52.6 BUN/Creatinine Ratio 13.3 Glucose 147 H Calcium 9.7 Magnesium 1.4 L Total Bilirubin 0.5 AST 17 ALT 11 Alkaline Phosphatase 94 Total Creatine Kinase Troponin I 0.14 H* Total Protein 6.9 Albumin 3.8 Globulin 3.1 Albumin/Globulin Ratio 1.2 Triglycerides 79 Cholesterol 185 LDL Cholesterol, Calc 122 VLDL Cholesterol, Calc 16 HDL Cholesterol 47 Cholesterol/HDL Ratio 3.9 TSH SARS-CoV-2, RNA, NAAT 12/03/21 08:12 WBC RBC Hgb Hct MCV MCH MCHC RDW Std Deviation RDW Coeff of Radha Plt Count MPV Immature Gran % (Auto) Neut % (Auto) Lymph % (Auto) Buchanan % (Auto) Eos % (Auto) Baso % (Auto) Neut # (Auto) Lymph # (Auto) Buchanan # (Auto) Eos # (Auto) Baso # (Auto) Immature Gran # (Auto) PT INR APTT PTT Ratio Sodium Potassium Chloride Carbon Dioxide Anion Gap BUN Creatinine Est Cr Clr Drug Dosing Est GFR ( Amer) Est GFR (Non-Af Amer) BUN/Creatinine Ratio Glucose Calcium Magnesium Total Bilirubin AST ALT Alkaline Phosphatase Total Creatine Kinase Troponin I 0.12 H* Total Protein Albumin Globulin Albumin/Globulin Ratio Triglycerides Cholesterol LDL Cholesterol, Calc VLDL Cholesterol, Calc HDL Cholesterol Cholesterol/HDL Ratio TSH SARS-CoV-2, RNA, NAAT Diagnostic Findings CTA chest 12/02/2021: No evidence of acute PE. Thin linear filling defects within branches of right and left lower lobe pulmonary arteries consistent with trace chronic PE per Radiology. No airspace consolidation. Diffuse pe ribronchial thickening suggest bronchitis/reactive airway disease. Densely calcified coronary arteries. ECG personally reviewed: ECG 12/02/2021 at 2:13 p.m.: Sinus tachycardia with PACs 106 beats per minute. Possible inferior infarct. Nonspecific T-wave abnormality. ECG 12/03/2021 at 7:38 a.m.: Sinus with first-degree AV block 96 beats per minute. Possible inferior infarct. Nonspecific ST/T-wave abnormality. Echo 12/03/2021: Normal LV size. Estimated EF 40%. Akinetic inferolateral wall. Hypokinesis of the inferior and possibly anterolateral wall. Sclerotic aortic valve. Mild MR. Medications Administered Current Inpatient Medications Acetaminophen (Acetaminophen 325 Mg Tab) 650 mg PO Q4H PRN PRN Reason: Pain or Fever Stop: 01/01/22 20:25 Last Admin: 12/03/21 09:44 Dose: 650 mg Documented by: Al Hydrox/Mg Hydrox/Simethicone (Aluminum/Magnesium Susp 30 Ml Udc) 15 ml PO Q4H PRN PRN Reason: Dyspepsia Stop: 01/01/22 20:25 Clopidogrel Bisulfate (Clopidogrel Bisulfate 75 Mg Tab) 75 mg PO [facility] Stop: 01/01/22 20:25 Last Admin: 12/03/21 08:04 Dose: 75 mg Documented by: Famotidine (Famotidine 20 Mg Tab) 20 mg PO BID [facility] Stop: 01/01/22 20:59 Last Admin: 12/03/21 08:04 Dose: 20 mg Documented by: Heparin Sodium/Dextrose (Heparin Sodium/Dextrose) 25,000 units in 500 mls @ 26 mls/hr IV .[id number] [facility]; Protocol Stop: 01/01/22 18:14 Last Titration: 12/03/21 08:24 Dose: 1,300 units/hr, 26 mls/hr Documented by: Sodium Chloride (Nss 1000ml) 1,000 mls @ 100 mls/hr IV .Q10H [facility] Stop: 12/03/21 14:09 Last Admin: 12/03/21 05:19 Dose: 100 mls/hr Documented by: Levothyroxine Sodium (Levothyroxine Sodium 50 Mcg Tablet) [facility] Stop: 01/02/22 08:59 Last Admin: 12/03/21 08:05 Dose: 50 mcg Documented by: Magnesium Hydroxide (Magnesium Hydroxide Susp 30 Ml Udc) 30 ml PO Q12H PRN PRN Reason: Constipation Stop: 01/01/22 20:25 Nitroglycerin (Nitroglycerin Sl 0.4 Mg/Tab Tab) 0.4 mg SL UD PRN PRN Reason: Chest Pain Stop: 01/01/22 20:25 Ondansetron HCl (Ondansetron Inj 2 Mg/Ml 2 Ml Vial) 4 mg IV Q6H PRN PRN Reason: Nausea Stop: 01/01/22 20:25 Pantoprazole Sodium (Pantoprazole 40 Mg Tab) 40 mg PO DAILY [facility] Stop: 01/02/22 08:59 Last Admin: 12/03/21 08:05 Dose: 40 mg Documented by: Spironolactone (Spironolactone 25 Mg Tab) 25 mg PO DAILY [facility] Stop: 01/02/22 08:59 Last Admin: 12/03/21 08:05 Dose: 25 mg Documented by: PG Care Time/CCT Total # of Minutes Spent Total Time Spent with Patient: Total time spent is greater than 50% in coordination of care (as documented) at patient's floor/unit and/or counseling patient: Coding Level of Care Code 57414 Office/Outpt Visit, New Diagnoses Non-ST elevation (NSTEMI) myocardial infarction I21.4 CAD (coronary artery disease) I25.10 Ischemic cardiomyopathy I25.5 SOB (shortness of breath) R06.02 Hypertension I10 Angina pectoris I20.9 Dyslipidemia E78.5 Sinus tachycardia R00.0
[2021-12-03] MEDS ORDERED: MAGNESIUM SULFATE / D5W 1 GM/100 ML BAG IV ONE (11:50)
[2021-12-03] MEDS ORDERED: METOPROLOL SUCC 25MG EXT REL TAB PO SCH (13:30)
[2021-12-03] MEDS ORDERED: ENOXAPARIN 100 MG/1ML SYR SQ ONE (14:00)
--- NOTE | 2021-12-03 15:30 | Discharge Summary ---
Date of Service December 03, 2021 Admission HPI Per Admitting Provider Mrs. Cochran is a 71-year-old white female with an underlying past medical history of hypertension, prior DVT on Eliquis, migraine cephalgia, postherpetic neuralgia, and vascular insufficiency with chronic edema. She presented to the ED at the recommendations of her PCP for work-up regarding atypical chest discomfort that has waxed and waned over the past 6 weeks. Patient is very vague in her symptomatology. Initial episode occurred approximately 6 weeks ago that awoke her from sleep. She reports a "burning sensation" in her arms, legs, chest wall that she described as an "electrical shock". The discomfort radiated into her jaw and she reports that her legs were "paralyzed". Symptoms lasted for approximately 1 hour before self alleviating. She did have associated shortness of breath at the time without nausea or diaphoresis. Since then, she has had 2-3 similar episodes that all occur while at rest. The subsequent episodes have not been as severe and have lasted for approximately 15 minutes. Most recently, she had an episode that was mostly jaw pain in the left side of her jaw that alleviated after taking her tramadol. No known aggravating factors. She does denote progressing shortness of breath over the past several weeks and that she typically was able to walk up and down the steps without difficulty but now seems to be slightly winded. Patient was seen by her PCP today who recommended she be evaluated in the emergency department. There she was found to be in a sinus tachycardia for which IV Lopressor was given. Current heart rate is 77. Otherwise she is hemodynamically stable and not hypoxic or requiring supplemental oxygen. Her troponin is slightly elevated at 0.21. She currently denies any complaints of chest pain, jaw pain, dizziness/lightheadedness, shortness of breath, diaphoresis, nausea or vomiting. As reported above, her last "episode" was approximately 3 days ago. Her EKG shows no acute ST/T wave changes and her chest x-ray shows no acute cardiopulmonary process. COVID test is negative. She was subsequently hospitalized for further evaluation and care. She does not use tobacco products. Denies a family history of CAD. She does have an underlying history of hypertension but is not diabetic and does not have hyperlipidemia. Patient reports having an exercise stress test in the that was normal but otherwise has never had any other formal cardiac work-up. In further discussion regarding her DVT, it was an isolated event but unprovoked for which she remains on chronic anticoagulation therapy. Her father of a pulmonary embolism and her son also has a history of pulmonary embolism and that he "needs to take Coumadin". Patient reports that she has had a full clotting work-up in the past that was "normal" through [facility]. Principal Diagnosis 1. Atypical Chest Pain- Presumed recent Myocardial Infarction 2. Chronic bilateral Pulmonary Emboli in the setting of ACT 3. DOAC Failure 4. JULIANNE- resolved Discharge Exam General: Resting comfortably in her hospital bed. Appears very anxious but in no acute distress NAD. HEENT: Head is AT/NC buccal mucosa is moist and pink Neck: No JVD. Negative hepatojugular reflex Cardiac: RRR with 2/6 SARA Lungs: CTA without W/R/R Abdomen: Normoactive X4. Soft and nontender in all quadrants. Extremities: No peripheral clubbing cyanosis or edema. Negative Homans' sign. No calf tenderness. Neuro: A&O X4 cranial nerves II through XII are grossly intact no focal neuro deficits Skin: No obvious skin lesions or rashes Psych: Appropriate affect pleasant and cooperative Discharge Data Allergies Allergy/AdvReac Type Severity Reaction Status Date / Time Iodinated Contrast Media Allergy Severe PASSING OUT Verified 12/02/21 16:41 bacitracin Allergy Intermediate REDNESS, Verified 12/02/21 16:41 RASH, "MAKES IT WORSE" latex Allergy Intermediate SKIN Verified 12/02/21 16:41 IRRITATION, ITCHY mold Allergy Intermediate CONGESTION Verified 12/02/21 16:41 neomycin Allergy Intermediate REDNESS, Verified 12/02/21 16:41 RASH, "MAKES IT WORSE" polymyxin B Allergy Intermediate REDNESS, Verified 12/02/21 16:41 RASH, "MAKES IT WORSE" aspirin Allergy Unknown STAYS AWAY Verified 12/02/21 16:41 FROM SINCE ON BLOOD THINNERS clarithromycin Allergy Unknown Unknown Verified 12/02/21 16:41 codeine Allergy Unknown Unknown Verified 12/02/21 16:41 diphtheria toxoid,fluid Allergy Unknown Unknown Verified 12/02/21 16:41 iron Allergy Unknown PER PT'S Verified 12/02/21 16:42 SON morphine Allergy Unknown Unknown Verified 12/02/21 16:42 prednisone Allergy Unknown Unknown Verified 12/02/21 16:42 Fish Containing Products Allergy Unknown Verified 12/02/21 16:42 fish derived Allergy Unknown Verified 12/02/21 16:42 fish oil Allergy Unknown Verified 12/02/21 16:42 shellfish derived Allergy Unknown Verified 12/02/21 16:41 grapefruit AdvReac Unknown Verified 12/02/21 16:41 orange juice AdvReac Unknown Verified 12/02/21 16:41 SEAFOOD Allergy Severe VOMITING Uncoded 09/24/20 01:19 Consultations 12/02/21 15:59 ED Decision to Admit Stat 12/02/21 20:26 Consult Cardiology Routine Assessment & Plan (1) Non-ST elevation (NSTEMI) myocardial infarction: (2) CAD (coronary artery disease): (3) Ischemic cardiomyopathy: (4) SOB (shortness of breath): (5) Hypertension: (6) Angina pectoris: (7) Dyslipidemia: (8) Sinus tachycardia: ASSESSMENT/PLAN: 1. NSTEMI: Presumably had an MT approximately 7 weeks ago based on her description with troponin levels that are trending downward, abnormal ECG, and abnormal echo suggesting previous MT. Discussed findings. Given stuttering symptoms since then, worsened dyspnea with exertion, and densely calcified coronary arteries on CT, recommended cardiac catheterization to evaluate coronary arteries. Risks and benefits were discussed with her in detail. She declined for now. She would like to go home and think about things. There is no urgent indication. Her symptoms overall have improved other than the dyspnea. She was reminded however that she is at risk for myocardial infarction, which can be fatal. She expressed understanding and continued to wish for conservative management. We discussed medical therapies. She is willing to try 1 new medication at a time. She was agreeable for beta-kalen therapy. She presumably took propanolol in the past. Start metoprolol succinate 25 mg once daily. She was already started on Plavix by primary hospitalist service. Would recommend evaluation by allergy to see if she is truly allergic to aspirin. Recommend high-intensity statin therapy when she is agreeable (she reportedly declined statin therapy when recommended by hospitalist service). She reports relative low blood pressure for her on DEMARCUS- inhibitor in the past but would recommend DEMARCUS-inhibitor trial again if she is agreeable at some point. No angina within the past several days. 2. CAD: Presuming that she has CAD based on densely calcified coronary arteries on CT scan, elevated troponins with event approximately 7 weeks ago reminiscent of myocardial infarction, and abnormal echo with wall motion abnormalities. Would recommend aspirin 81 mg daily, high-intensity statin therapy, beta- kalen, DEMARCUS-inhibitor. Given her history of intolerances, she has declined aspirin and statin therapy. She is agreeable for low-dose beta-kalen for now. She does not wish to start any other medications at this time. 3. Ischemic cardiomyopathy: Wall motion abnormalities as described. She appears euvolemic. Metoprolol succinate. DEMARCUS-inhibitor if agreeable in the future. Cardiac catheterization recommended but declined. She does not qualify for ICD for primary prevention at this point. 4. Angina: She has had symptoms concerning for angina since her more significant event several weeks ago. Fortunately, she has not had any anginal symptoms for approximately 1 week and believes that overall symptoms have improved over time. Plan as above. 911 for recurrent symptoms and she was agreeable to this. 5. Shortness of breath: She appears euvolemic. Dyspnea with exertion could be due to ischemic heart disease. Cardiac catheterization was recommended as above but declined. She also has abnormal CT imaging such as chronic PE she and peribronchial thickening suggesting bronchitis or reactive airway disease. 6. Sinus tachycardia: Likely physiologic response for reduced LV systolic func tion. Should improve with time. 7. Hypertension: Blood pressure acceptable. Plan as above. 8. Dyslipidemia: LDL not at goal for presumed CAD. Recommend high-intensity statin therapy. Will continue discuss this as an outpatient if she is agreeable. 9. Disposition: She would like to go home. She has not had an acute event here and based on her description has not had any anginal symptoms for at least 1 week. She would like to follow-up in the office. Follow-up with me in 1 week. Consider cardiac rehab. Plan of care discussed with Hilaria Gloria of the primary hospitalist service. Highly complex medical issues. Thank you for allowing me to participate in the care of your patient. Please call for any other questions or concerns. Sincerely, Bennie Zambrano M.D. Ordered Studies 12/02/21 18:41 CT angio chest PE protocol Stat IMPRESSION: 1. There is no evidence of acute pulmonary embolus in the main, lobar, or segmental pulmonary arteries. 2. Thin linear filling defects within branches of the right and left lower lobe pulmonary arteries are consistent with trace chronic pulmonary emboli. 3. There is no airspace consolidation or pleural effusion. 4. Cardiomegaly. 5. Diffuse peribronchial thickening suggests bronchitis/reactive airway disease. Clinical correlation will be required. Hospital Course (1) Atypical chest pain: 71-year-old white female with an underlying PMHx of HTN and prior DVT on ACT therapy presented with vague complaints that have waxed and waned over the past 6 weeks. Most recent episode was jaw pain that occurred approximately 3 days agosent here by PCP * Patient currently without symptoms * Troponin slightly elevated at 0.21. Uncertain if this is from a recent event that corresponded with the jaw pain that she experienced 3 days ago and it is downtrending? or perhaps the event that woke her from sleep 6 weeks ago * her troponin has cycled and continued to downtrend (0.21 --> 0.18 --> 0.14) * She has no acute EKG changes * She routinely takes Eliquis but this was held and instead she was treated with a heparin drip until her troponin cycled * Her echocardiogram does show regional wall motion abnormalities. Her EF is reduced at 40% with akinetic inferior lateral wall hypokinesis. This is highly suspicious for recent event. * Patient was seen by cardiology who is recommending cardiac catheterization but patient declines at this time and would like to go home and "think about it". She is aware that she is at risk for having additional events and that these could be fatal. * It was recommended that she go home on aspirin, beta-blockade, statin therapy, and DEMARCUS inhibitor. She is agreeable to low-dose beta-blockade. Metoprolol succinate was advised but she declines taking a long-acting medication. She is agreeable to taking tartrate to determine if she will tolerate this. If she does, this can then be transitioned to succinate. In addition, she reports to have an allergy to aspirin. Given the unknown extent of her underlying cardiac disease, I do believe antiplatelet agent therapy is recommended. Cardiology agrees. Will discharge with Plavix. Patient encouraged to follow-up with Dr. Waite to determine if she can be specifically tested for an aspirin allergy. If it is deemed that she is not allergic to aspirin, would transition her Plavix over to aspirin * In addition, patient does have an underlying history of an unprovoked DVT. Her father and her son both have had DVTs/PEs. Given his history in the setting of tachycardia which she presented with (heart rate of 115), it was felt imperative that she be ruled out for a PE. CTA was performed that did show bilateral subsegmental pulmonary emboli. These appear to be chronic in nature rather than acute. Patient reports that she did have a CTA of her chest at the time of diagnosis of her DVT and was told she has no blood clots in her lungs. That being said, I did reach out to Dr. Palacio from the anticoagulation therapy clinic who agrees that patient should be transitioned from a DOAC to Coumadin. She is recommending withholding addition of Coumadin until Monday given the utilization of a heparin drip while in house. She can start Lovenox tonight (90 mg twice daily with plan to bridge until INR therapeutic). She is to start Coumadin on Monday and take daily. She will follow-up with her in the office on of this week where she will have a follow-up pro time drawn * Although patient has reported allergy to contrast dye, records reviewed from Dr. Waite and deemed safe for isoosmolar contrast. I did verify with radiology prior to administration of contrast dye who confirmed that our contrast material was osmolar. Despite this, radiologist would only proceed with imaging after patient was premedicated. She was given Zyrtec and Pepcid as recommended by Dr. Waite's note in addition to Solu-Medrol. Patient reports "hives on her chest". She claims these developed prior to the administration of contrast dye and completely resolved when she rubbed some antifungal cream from her purse onto the rash. * A lipid panel was obtained for risk stratification but she declines addition of statin therapy at this time * Patient should follow-up with cardiology as an outpatient. She should return to the ED for any new or worsening symptoms (2) Elevated troponin: * see above (3) Sinus tachycardia: * Patient's current heart rate is 92-107. Presenting heart rate was 112= * Patient reports an allergy to "beta-blockers". In lengthy discussion regarding this issue, she reports she was prescribed a beta-kalen for migraines. I suspect this was likely Inderal. She is agreeable to trial of metoprolol but would prefer a short acting version. Ideally would use metoprolol succinate but to determine if she will tolerate, we will trial tartrate twice daily with up titration per PCP/cardiology. If she tolerates, this can be converted over to succinate. (4) JULIANNE (acute kidney injury): * Troponin slightly elevated at 1.2 (was 0.7 10/02) * Patient was hydrated with IV fluids overnight given slightly elevated creatinine and need for contrast dye. Her follow-up creatinine today is 1.05 (5) Hypertension: * Continue spironolactone as prior to hospitalization * Monitor closely with the addition of beta-blockade (6) Hypothyroid: * Continue Synthroid as prior to hospitalization Plan of care discussed with Dr. Palacio and Dr. Zambrano Total Time Total Time Spent Total Time Spent (In Minutes): 60 minutes including time spent with patient, discussion with consultants, coordination of care with nurse navigator and preparation of documentation Discharge Plan Discharge Items Patient Disposition: Home - Self-Care Reason For Visit: ATYPICAL CHEST PAIN Discharge Diagnosis: 1. Atypical Chest Pain-- underlying heart disease suspected 2. Chronic Pulmonary Embolism (clots in the lung) despite Eliquis on board 3. Hypokinesis of of the Heart Muscle 4. Acute Kidney Injury 5. Hypomagnesemia- replaced Condition on Discharge: Good Activity: As commented below Activity Comment: as tolerated. light activity until seen in FU by cardiology Non-emergency contact: Primary Care Provider, Specialist and [employer] Call non-emergency contact if: you have any medication questions and your symptoms worsen Follow-up/Referrals: Josselin Wallace PA-C [Physician Miner Operator] - 12/13/21 9:30 am ([facility]) Yaneli Palacio MD, PhD [Pathologist] - 12/08/21 9:00 am ([facility]) Jaki Escoto DO [Primary Care Provider] - Diet: Heart Healthy Addtl Attending Provider Instructions: * You presented to the emergency department complaining of atypical chest pain that has waxed and waned over the past 6 weeks (most recent symptom 3 days prior to presentation) * Your troponin (which is a cardiac lab value) was slightly elevated upon pre sentation without EKG changes. This lab value was cycled and repeated every 6 hours and continued to come down * It is likely that the event/events that you experienced over the course of the past 6 weeks were cardiac in nature and your troponin was likely elevated at that time and we picked it up on the continued downtrend * a cardiac catheterization was encouraged but you decided to hold off at this time * To help further protect your heart, it was recommended that you be on aspirin, metoprolol, Lipitor, and lisinopril but you have declined this given allergies and intolerances in the past. You are agreeable to trying a low dose beta- kalen (Metoprolol). Typically we use Long acting Metoprolol (succinate) but given your reluctance, you are being started on Tartrate (which is shorter acting) so if you have an adverse reaction, if will be out of the system faster. If you tolerate it, you can transition to the long acting version (which is better for the heart). In addition, since you are "allergic" to aspirin, we feel that we need to put you on some antiplatelet agent to help with flow to the heart. You have tolerated Plavix in the hospital-- will continue this, at least for now. * it is important that you follow-up Dr. Waite to help differentiate if you truly have an Aspirin Allergy (as Plavix seems rather aggressive if you don't have a cardiac stent) * Also, in regards to these blood clots in your lungthese seemed to have developed while on Eliquis as you had a negative CTA done with initial diagnosis of your DVT. They are chronic in nature but they are nonetheless which leads us to believe that you have failed Eliquis. I have spoken to Dr. Palacio (who specializes in blood clots, clotting disorders, and anticoag ulation therapy). She agrees that transition to Coumadin is warranted at this time. --Stop Eliquis! --Start Lovenox tonight when your next dose of Eliquis would be due. Lovenox is to be given twice a day (you are being prescribed 100 mg but only need to inject 90 mg twice a day). The Syringe come as 100mg/1mL and you need 0.9mL so discard 1 hashmark worth of medicine --START COUMADIN MONDAY NIGHT (as recommended by Dr. Palacio). She is recommended 7.5mg daily (take with dinner). TAKE THIS IN CONJUNCTION WITH THE LOVENOX --you are to be seen in the Anticoagulation Clinic by Dr. Palacio (Monday or -- Our Nurse Navigator is working on an appt) where you will have labs drawn --you will remain on both lovenox and coumadin until your Coumadin level (called a protime INR) is therapeutic (between 2-3) and then the lovenox will be stopped --it is very important that you notify the Anticoagulation clinic prior to starting any medications as certain foods/meds can interact with your Coumadin * your magnesium level was low while in the hospital (which can cause cardiac issues) and you were given 2 mags of magnesium through your IV. I have ordered oral magnesium to continue. Talk with you PCP about repeating labs to determin if this needs to be conitnued terminal computer operator * Return to the ED for new or worsening symptoms * Follow up with Dr. Zambrano (Cardiology), Dr. Waite (supplier quality specialist), Dr. Palacio (Anticoagulation clinic) and your PCP Pending Studies at Discharge: No Stand-Alone Forms: My [facility] Medications and DC Order Prescriptions: New clopidogrel 75 mg Tablet 75 mg PO QAM Qty: 30 RF: 0 enoxaparin [Lovenox] 100 mg/mL syringe 90 mg subcut Q12H Qty: 10 RF: 0 metoprolol tartrate 25 mg tablet 25 mg PO BID Qty: 60 RF: 0 warfarin 7.5 mg tablet 7.5 mg PO DAILY Qty: 30 RF: 0 magnesium oxide 400 mg magnesium tablet 400 mg PO DAILY Qty: 14 RF: 0 enoxaparin [Lovenox] 100 mg/mL syringe 90 mg subcut Q12H Qty: 5 RF: 0 Continued nmkfqbzmik-mrpyhmeiheits-[id number] 50-325-40 mg tablet 1 tab PO Q6H PRN (Reason: Headache) RF: 0 tramadol 50 mg tablet 50 - 100 mg PO Q6H MDD 400 MG/DAY PRN (Reason: Pain) RF: 0 spironolactone 25 mg tablet 25 mg PO DAILY RF: 0 levothyroxine [Synthroid] 50 mcg tablet 50 mcg PO QAM RF: 0 lidocaine 5 % ointment 1 applic topical DIRECTED PRN (Reason: Neuralgia Pain) RF: 0 triamcinolone acetonide 0.1 % ointment 1 applic TOPICAL DIRECTED PRN (Reason: Skin Irritation) RF: 0 mupirocin 2 % Ointment 1 applic TOPICAL DIRECTED PRN (Reason: Skin Irritation) RF: 0 clobetasol 0.05 % ointment 1 applic TOPICAL DIRECTED PRN (Reason: Skin Irritation) RF: 0 Systane Ultra 0.4-0.3 % Drops 2 drp OPHTHALMIC (EYE) DIRECTED PRN (Reason: Dry Eyes) RF: 0 cholecalciferol (vitamin D3) 50 mcg (2,000 unit) tablet 2,000 unit PO DAILY RF: 0 famotidine [Pepcid] 20 mg tablet 20 mg PO BID Qty: 14 RF: 0 benzonatate 200 mg capsule 200 mg PO TID PRN (Reason: Cough) RF: 0 pantoprazole 40 mg tablet,delayed release (DR/EC) 40 mg PO DAILY RF: 0 Advil Dual Action 125-250 mg Tablet 2 tab PO Q6 PRN (Reason: Pain) RF: 0 calcium carbonate [Tums] 300 mg (750 mg) Tablet,Chewable 600 mg PO BID PRN (Reason: gi-upset) RF: 0 diphenhydramine HCl [Benadryl] 25 mg Capsule 50 mg PO BID RF: 0 Nasal Decongestant Tabs 2 tabs PO BID RF: 0 Robitussin Cough Gel 1 dose PO DIRECTED RF: 0 nystatin 100,000 unit/gram powder 1 applic TOPICAL DIRECTED RF: 0 Discontinued Eliquis 5 mg tablet 5 mg PO BID RF: 0 Discharge Orders: Discharge Order (Routine); Ordered 12/03/21 Ordered By: Hilaria Shen/Other Patient Handouts: Coumadin Oral Tablet 7.5 mg, What to Know When TakingWarfarin Admission Data Admit Date/Time: 12/02/21 17:58 Attending Provider: Randall Singer Admit Provider: Adrian Govea Primary Care Provider: Jaki Escoto Other Providers: Hector Zambrano ; Randall Singer Other Interventions: Discharge Summary Assessment (RN) Last Done: 12/03/21 15:01 Supervising Physician Co-Signing Physician Notes I supervised Hilaria Gloria PA-C on the care of this patient. I did not see the patient as she had been seen by an attending in the last 24 hours. The plan is as written in her note except for any following changes/exceptions: None Coding Level of Care Code 38351 OBS Care - Discharge Diagnoses Atypical chest pain R07.89 Elevated troponin R77.8 Sinus tachycardia R00.0 JULIANNE (acute kidney injury) N17.9 Hypertension I10 Hypothyroid E03.9
--- NOTE | 2021-12-03 21:25 | Electrocardiogram Report ---
Test Reason : Blood Pressure : / mmHG Vent. Rate : 096 BPM Atrial Rate : 096 BPM P-R Int : 210 ms QRS Dur : 090 ms QT Int : 372 ms P-R-T Axes : 060 006 109 degrees QTc Int : 471 ms Sinus rhythm with 1st degree A-V block Low voltage QRS Inferior infarct (cited on or before 02-DEC-2021) Abnormal ECG When compared with ECG of 02-DEC-2021 14:13, Premature atrial complexes are no longer Present Inverted T waves have replaced nonspecific T wave abnormality in Lateral leads Confirmed by Hector Zambrano ([id number]) on 12/03/2021 9:25:29 PM Referred By: Jaki Escoto Confirmed By:Hector Zambrano
== END 2021-12-03 15:03 | disposition home or self-care (01) ==
LOC: ED 13:20 → EDINP 13:20 → SUATTDRO 17:58 → EDINP 20:28